=== PATIENT | male | born 1945 | race Caucasian/White ===

== ENCOUNTER → 2018-03-08 17:51 | Outpatient (CLI) | payer MEDICARE, SELFPAY ==
[2018-03-08 17:53] LABS: Red Blood Cells-Urine 0 SEEN /hpf (0-5)
[2018-03-08 18:57] LABS: Color, Urine Yellow (Yellow); Glucose, Dipstick NEGATIVE (Normal); Ketone-Dipstick 5 mg/dl (Negative); Nitrite-Dipstick Negative (Negative); Protein-Dipstick 30 mg/dl (Negative); Urine Bilirubin Dipstick Negative (Negative); Urine Clarity Cloudy (Clear); Urine Urobilinogen 1 mg/dl (Normal)
[2018-03-08 18:58] LABS: Leukocyte Esterase-Dipstick 25 /ul (Negative); Occult Blood-Urine 10 /ul (Negative)
[2018-03-08 19:01] LABS: Bacteria 3+ /hpf (None Seen); Calcium Oxalate Crystals Ur 4+ /hpf (<or=2+); Hyaline Cast 0-5 SEEN /lpf (0-5); Mucous, Urine 3+ /hpf (<or=2+); Squamous Epithelial Cells - UA 0-5 SEEN /hpf (0-5); White Blood Cells 0-5 SEEN /hpf (0-5)
--- OUTSIDE RECORDS SUMMARY | 2018-04-25 02:36 | XMS RPT_ITS ---
:1945 Author Organization OHIP Care Team Providers Name Role Phone NASH ARELLANO (PA) Attending Unavailable JOHN, ELROY D Referring Unavailable CARYL MANPREET Gio Admitting Unavailable CARYL MANPREET T Attending Unavailable NASH ARELLANO (REAL) Referring Unavailable JOHN DO, ELROY D Attending Unavailable JOHN DO, ELROY D Primary Care Unavailable JOHN DO, ELROY D Attending Unavailable JOHN DO, ELROY D Primary Care Unavailable ROSEMARY HARRELL CNP Attending Unavailable JOHN DO, ELROY D Primary Care Unavailable MICAELA MIRANDA MD Attending Unavailable JOHN DO, ELROY D Primary Care Unavailable THOMPSON MARTINEZ MD Attending Unavailable JOHN DO, ELROY D Primary Care Unavailable Rosemray Harrell Attending Unavailable John, Elroy Primary Care Unavailable Rosemary Harrell Referring Unavailable Rosemary Harrell Attending Unavailable Rosemary Harrell Referring Unavailable John, Elroy Primary Care Unavailable Thompson Martinez Attending Unavailable Thompson Martinez Referring Unavailable John, Elroy Primary Care Unavailable PROBLEMS PROBLEMS DATE TYPE CONDITION / CODE ATTENDING STATUS SOURCE 03/19/2018 Unknown R82.998 - Other Rosemary Harrell Active Pam abnormal findings M [facility] Hospital R82.998(ICD-10) Repository 03/09/2018 Unknown R31.1 - Benign Rosemary Harrell Active Pam essential M [facility] hematuria / Repository R31.1(ICD-10) 12/08/2017 Active Family history of CARYL, Active [facility] malignant MANPREET T [facility] neoplasm of Repository digestive organs / Z80.0(ICD-10) PROCEDURES PROCEDURES No Procedure Records FoundRESULTS RESULTS 12 LEAD ELECTROCARDIOGRAM Observed: 04/15/2018 Status: F Source: [place] 4:04 PM [facility] REPOSITORY [facility] Cardiovascular Services [address] [place] [address] EKG - NHC 04/14/18929 MR#: [id number] Acct: [id number] Name: SILAS WOOD Rep #: [id number] : 1945 72 From: Tonny Hidalgo MD Attending Dr: Raymon AUSTIN,Thompson Parks Status: PRE SDC Ordering Dr: Cyrus Davis MD Date: 04/14/18 Location: [facility] Sex: M C Admitted: Test Reason : Blood Pressure : / mmHG Vent. Rate : 048 BPM Atrial Rate : 048 BPM P-R Int : 212 ms QRS Dur : 090 ms QT Int : 412 ms P-R-T Axes : 069 044 068 degrees QTc Int : 368 ms Marked sinus bradycardia with 1st degree A-V block Abnormal ECG Confirmed by ROCKY AUSTIN, TONNY ([id number]), graphics editor ERIC CHAPARRO ([id number]) on 04/15/2018 4:04:30 PM Referred By: Thompson Martinez Confirmed By:TONNY HIDALGO MD 04/15/18 1604 Date Tonny Hidalgo MD CC: Cyrus Davis MD; Elroy Lopez DO; Thompson Martinez MD Date Dictated: 04/14/18929 Date Transcribed: 04/14/18929 Garnett Feeder: Signed KIDNEY AND BLADDER Observed: 03/19/2018 Status: F Source: [place] 7:51 AM [facility] REPOSITORY [facility] Imaging [place] [address] Kidney and Bladder MR#: [id number] Acct: [id number] Name: SILAS WOOD Rep #: [id number] : 1945 M 72 From: Martell Grubbs DO PCP: Elroy Lopez DO Status: REG CLI Study: Kidney and Bladder Date of Exam: 03/19/18 Exam# [id number] Ordering Dr: Rosemary Harrell ORDER DEPARTMENT SUPERVISOR-C STUDY: RENAL ULTRASOUND - COMPLETE REASON FOR EXAM: Male, 72 years old. History of bladder stones. TECHNIQUE: Ultrasound evaluation of the kidneys was performed with real-time and static bunch-scale imaging. COMPARISON: None. FINDINGS: RIGHT KIDNEY: Normal location of the right kidney, which is normal in size. The right kidney measures 10.2 x 5.5 x 4.3 cm. There is a normal cortex of the right kidney. The renal cortex measures 1.3 cm. There is demonstrated hypoechoic cyst of the right kidney measuring 1.3 x 1.3 x 1.6 cm with additional cyst measuring 1.4 x 1.3 x 1.3 cm within the mid portion of the kidney with slight exophytic component. There is a nonobstructive renal hypoechoic 3 mm nephrolith within the renal pelvis. There is no right hydronephrosis. DISTAL RIGHT URETER: There is non-visualization of the distal right ureter. There is no demonstrated right ureterovesical junction calculus. There is a visualized right ureteral jet. LEFT KIDNEY: Normal location of the left kidney, which is normal in size. The left kidney measures 10.8 x 4.7 x 5.9 cm. There is a normal cortex of the left kidney. The renal cortex measures 0.9 cm. There is no left renal mass or cyst. There is a nonobstructive 4 mm cortical renal nephrolith is present. There is no left hydronephrosis. DISTAL LEFT URETER: There is non-visualization of the distal left ureter. There is no demonstrated left ureterovesical junction calculus. There is a visualized left ureteral jet. Right sac I.V.C.: The IVC is patent. BLADDER: The distended urinary bladder has a volume of 40 ml. The empty urinary bladder has a volume of 4 ml. There is a normal wall thickness of the distended urinary bladder. The bladder base demonstrates mass effect by an enlarged prostate measuring 5.1 x 3.5 x 5.0 cm.. There are dependent layering bladder stones measuring 7 and 9 mm respectively. US/Kidney and Bladder IMPRESSION: 1. Simple appearing right renal cysts as above with 3 mm nonobstructing nephrolith. 2. Left renal nonobstructing 4 mm nephrolith. 3. Dependent layering bladder stones measuring 7 and 9 mm. 2. Enlarged prostate abutting the inferior bladder measuring 5.1 x 3.5 x 5.0 cm. Electronically Signed: Martell Grubbs DO at 9:35 EST , Service support , CC: Elroy Lopez DO; Rosemary Harrell NP Garnett Feeder: Signed Observed: 03/15/2018 Status: F Source: [place]AM CULTURE, URINE 8:33 AM [facility] REPOSITORY Urine Culture Below infection level. ORGANISM 1: Streptococcus group B [place] Count 1000-10,000 Performed By: #### M100.0650 #### [facility] [address] [place], [place], [address] URINALYSIS, COMPLETE Collected: 03/08/2018 Status: C Source: [place] 8:30 AM [facility] REPOSITORY Order Comment: How was Urine Obtained? CLEAN CATCH TYPE CODE TESTS RESULT OUT OF RANGE REFERENCE UNITS LAB L400.3000 Yellow COLOR Normal Yellow LAB L400.3050 Clear Normal CLARITY Cloudy LAB L400.3200 Normal mg/dl Normal GLUCOSE, UR NEGATIVE LAB L400.3300 Negative mg/dL Normal BILIRUBIN URINE Negative LAB L400.3400 Negative mg/dl High 5 KETONE UR LAB L400.3465 1.002-1.030 Normal SP.GR. DIPSTX 1.020 LAB L400.3550 5.0 - 8.0 pH UR Normal 6.0 LAB L400.3600 Negative mg/dl High PROT 30 DIPSTX LAB L400.3700 Normal mg/dl High 1 UROBILI LAB L400.3750 Negative Normal NITRITE UR Negative LAB L400.3780 Negative /ul High 10 OCCULT BLOOD-UR LAB L400.3800 Negative /ul High LEUK 25 ESTERASE LAB L400.4050 0-5 /hpf WBC Normal 0-5 SEEN Result Comment: AMENDED REPORT 03/08/181900 WBC previously reported as: 0 SEEN /hpf LAB L400.4100 0-5 /hpf Normal RBC-UA 0 SEEN LAB L400.4150 0-5 /hpf Normal SQUAM EPI 0-5 SEEN Result Comment: AMENDED REPORT 03/08/181900 SQUAM EPI previously reported as: 0 SEEN /hpf LAB L400.4300 None Seen /hpf Normal BACTERIA 3+ Result Comment: AMENDED REPORT 03/08/181900 BACTERIA previously reported as: 0 SEEN /hpf LAB L400.4350 <or=2+ /hpf Normal MUCUS, URINE 3+ Result Comment: AMENDED REPORT 03/08/181900 MUCUS, URINE previously reported as: 0 SEEN /hpf LAB L400.4400 0-5 /lpf Normal HYALINE CAST 0-5 SEEN LAB L400.4700 <or=2+ /hpf Normal CA OX CRYSTAL 4+ Performed By: #### L400.0001 #### [facility] [address] [place] [address], [id number] PSA Collected: 02/26/2018 Status: F Source: [facility] 1:50 PM [facility] REPOSITORY TYPE CODE TESTS RESULT OUT OF REFERENCE UNITS RANGE LAB PSA(LOINC) 0.00-4.00 ng/mL High Prostate 4.47 Specific Antigen Performed By: #### PSA #### [facility] [address] [place] [id number] NURSING PROG Observed: 12/08/2017 Status: COMPLETED Source: [place] 12:15 PM [facility] REPOSITORY HNO ID: [id number] Author: Hillary Danitza Yu RN Service: Nursing Author Type: Registered Nurse Type: Nursing Progress Note Filed: 12/08/2017 12:15 PM Note Text: Discharged home via wheel chair in the care of his friend, no complaints, all safety maintained. PT ED Observed: 12/08/2017 Status: COMPLETED Source: [place] 12:10 PM [facility] REPOSITORY HNO ID: [id number] Author: Hillary Yu RN Service: Nursing Author Type: Registered Nurse Type: Patient Education Filed: 12/08/2017 12:19 PM Note Text: POST OP LEARNING RESPONSE INSTRUCTION PROVIDED TO: Patient and friend/other METHOD OF INSTRUCTION: Individual instruction Written instruction - handouts Verbal instruction PATIENT / FAMILY RESPONSE: Information received as demonstrated by interest and questions FOLLOW-UP PLAN: Patient instructed to call with any further issues SUPPLEMENTAL MATERIAL: None REFERRAL (RECOMMENDATION): None Electronically Signed By: Hillary Yu RN In Department: AMBULATORY SURGERY NURSING PROG Observed: 12/08/2017 Status: COMPLETED Source: [place] 11:59 AM [facility] REPOSITORY HNO ID: [id number] Author: Hillary Yu RN Service: Nursing Author Type: Registered Nurse Type: Nursing Progress Note Filed: 12/08/2017 11:59 AM Note Text: Tolerating snack, no complaints. PT ED Observed: 12/08/2017 Status: COMPLETED Source: [place] 11:51 AM [facility] REPOSITORY HNO ID: [id number] Author: Hillary Yu RN Service: Nursing Author Type: Registered Nurse Type: Patient Education Filed: 12/08/2017 11:54 AM Note Text: Dr Ramos to visit with patient and friend., all questions answered, no complaints, all safety maintained. NURSING PROG Observed: 12/08/2017 Status: COMPLETED Source: [place] 11:49 AM [facility] REPOSITORY HNO ID: [id number] Author: Hillary Yu RN Service: Nursing Author Type: Registered Nurse Type: Nursing Progress Note Filed: 12/08/2017 11:50 AM Note Text: Pt into Endo recovery room in satisfactory condition. Resting on left side. Pt. sleepy but arousable. Abdomen soft, no complaints, all safety maintained. Will continue to monitor. NURSING PROG Observed: 12/08/2017 Status: COMPLETED Source: [place] 11:40 AM [facility] REPOSITORY HNO ID: [id number] Author: Yahaira Zarco RN Service: Nursing Author Type: Registered Nurse Type: Nursing Progress Note Filed: 12/08/2017 11:40 AM Note Text: Patient did not experience a fall within the Intraoperative area. Patient did not experience a burn within the Intraoperative area. Yahaira Zarco RN NURSING PROG Observed: 12/08/2017 Status: COMPLETED Source: [place] 11:20 AM [facility] REPOSITORY HNO ID: [id number] Author: Hillary Yu RN Service: Nursing Author Type: Registered Nurse Type: Nursing Progress Note Filed: 12/08/2017 12:26 PM Note Text: Discharged at 1220 not 1120, mis typed. NURSING PROG Observed: 12/08/2017 Status: COMPLETED Source: [place] 11:20 AM [facility] REPOSITORY HNO ID: [id number] Author: Hillary Yu RN Service: Nursing Author Type: Registered Nurse Type: Nursing Progress Note Filed: 12/08/2017 12:27 PM Note Text: Discharged at 1220 not 1120, mis typed. Patient did not experience a fall prior to discharge. Patient did not experience a burn prior to discharge. Hillary Yu RN NURSING PROG Observed: 12/08/2017 Status: COMPLETED Source: [place] 11:12 AM [facility] REPOSITORY HNO ID: [id number] Author: Dana Gillette RN Service: (none) Author Type: Registered Nurse Type: Nursing Progress Note Filed: 12/08/2017 11:13 AM Note Text: [facility] PRE-OP NURSING HAND OFF NOTE SBAR Hand off given to Yahaira Zarco RN. Hand off was communicated verbally and at the patient's bedside and all questions were answered. FALLS/CHEATHAM Patient did not experience a fall within the Preoperative area. Patient did not experience a burn within the Preoperative area. Dana Gillette RN PT ED Observed: 12/08/2017 Status: COMPLETED Source: [place] 9:34 AM [facility] REPOSITORY HNO ID: [id number] Author: Dana Gillette RN Service: (none) Author Type: Registered Nurse Type: Patient Education Filed: 12/08/2017 9:34 AM Note Text: Discharge Instructions were reviewed pre-operatively with the patient. All questions and concerns were addressed. Dana Gillette RN PRE OP LEARNING ASSESSMENT PROCEDURE/SURGERY: GI PROCEDURES: Colonoscopy READINESS TO LEARN COGNITIVE ABILITY: Alert and oriented MOTIVATION TO LEARN: Interested FAMILY SUPPORT: Unable to assess - Family not present PATIENT LEARNS BEST BY: Multiple Methods FACTORS AFFECTING LEARNING: None PHYSICAL LIMITATIONS AFFECTING LEARNING: None Electronically Signed By: Dana Gillette RN In Department: AMBULATORY SURGERY HISTORY PHYSICAL Observed: 12/08/2017 Status: COMPLETED Source: [place] 9:31 AM [facility] REPOSITORY HNO ID: [id number] Author: Manpreet Ramos Service: General Surgery Author Type: Physician Type: HANDP Filed: 12/08/2017 9:32 AM Note Text: HISTORY AND PHYSICAL ? Silas Wood 1945 ? REFERRING PHYSICIAN: Elroy Lopez, DO ? CHIEF COMPLAINT: colon consult ? HPI: The patient is a 72 year old male referred for endoscopy. Silas notes a family history of colon cancer in his mother, last colonoscopy was in July 2012 with 5-year follow-up recommended. He denies any change in bowel habits, weight changes, blood in stools, black tarry stools or abdominal pain. Denies upper GI complaints. ? Past medical history significant for hypertension and hypercholesterolemia. Patient notes at one point in the last few years he was found to have irregular heartbeats on a routine exam, had echocardiogram and was evaluated by cardiology, states he was told no medication or further workup indicated. He follows with his PCP regularly every 6 months. He notes he enjoys good health and has an active lifestyle, still working and walks every day as well as occasional weight lifting. He notes he eats a very health-conscious diet. He denies any chest pain, shortness of breath or recent hospitalizations. ? ? PAST?MEDICAL?HISTORY PAST MEDICAL HISTORY Diagnosis Date - Elevated PSA ? - Hypercholesteremia ? - Unspecified essential hypertension ? ? ? PAST?SURGICAL?HISTORY PAST SURGICAL HISTORY Procedure Laterality Date - COLONOSCOP W/ OR W/O [facility] SPEC ? 08/24/12 ? Colonoscopy-return scope 2017 - PAST SURGICAL HISTORY OF ? 1979 ? lower wisdom teeth ? ? ? CURRENT?MEDICATIONS ? Current Outpatient Prescriptions: doxycycline 20 mg tablet TAKE 1 TABLET TWICE A DAY UNTIL FINISHED dutasteride (AVODART) 0.5 mg capsule Take 0.5 mg by mouth once daily. peg 3350-Electrolytes (GOLYTELY) 236-22.74-6.74 -5.86 gram suspension Take 4,000 mL by mouth one time only for 1 dose. NIFEdipine SR (NIFEDICAL XL) 60 mg 24 hr tablet Take 60 mg by mouth once daily. atenolol 50 mg tablet Take 50 mg by mouth once daily. Lovastatin 40 mg tablet Take 60 mg by mouth daily at bedtime. DOXYCYCLINE HYCLATE ORAL Take 20 mg by mouth twice daily. CALCIUM CARBONATE/VITAMIN D3 (CALCIUM + D ORAL) Take 1,200 mg by mouth twice daily. cholecalciferol, vitamin D3, 4,000 unit cap Take 4,000 mg by mouth three times daily. Evagxgltnkaeu-Dqukohve-Sxnrpc (CENTRUM SILVER) Tab Take 1 tablet by mouth once daily. ? No current facility-administered medications for this visit. ? ALLERGIES: Patient has no known allergies. ? PERSONAL HISTORY: SOCIAL?HISTORY Social History Marital status: Single Spouse name: Years of education: Number of children: 0 ? Occupational History Occupation Employer Comment DELIVERY [employer] ? Social History Main Topics Smoking status: Never Smoker ? Smokeless tobacco: Never Used Alcohol use: No ? FAMILY HISTORY: FAMILY?HISTORY FAMILY HISTORY Problem Relation Age of Onset - Colon Cancer Mother ? ? with mets to liver - Heart Father ? - Colon Cancer Maternal Grandmother ? ? ? REVIEW OF SYMPTOMS: The review of systems data was entered by the nurse and reviewed by me ? Nursing Notes: Xin Hernadez LPN 11/25/2017 9:04 AM Signed REVIEW OF SYSTEMS: General: The patient denies fatigue, denies weight loss, denies weight gain, denies feeling hot, and denies feelings of cold. Eyes: The patient denies glaucoma, denies eye injury/surgery, does not wear glasses or contacts. Ear/Nose/Throat: The patient denies allergies, denies hayfever, denies ear infections, and denies bloody noses. Cardiovascular: The patient denies chest pain, denies heart disease, denies high blood pressure,denies cardiac stent, denies prior heart attack, NOTES irregular heart beat, denies high cholesterol, denies poor circulation, denies heart failure, other cardiac issues, denies claudication, denies cold feet, denies peripheral arterial stent. Respiratory: The patient denies tuberculosis, denies pneumonia, denies frequent cough, denies pulmonary embolism, denies shortness of breath, and denies coughing up blood. Gastrointestinal: The patient denies difficulty swallowing, denies acid reflux, denies ulcers, denies vomiting, denies jaundice/hepatitis, denies gallbladder problems, denies black or tarry stools, denies hemorrhoids, denies bleeding from rectum, denies diverticulitis, denies constipation, denies diarrhea, denies loss of stool control, and denies hernias. Kidney/Bladder: The patient denies kidney stones, denies urine infections, and NOTES bloody urine. Skin: The patient denies a history of skin cancer, denies bleeding/changing moles, and denies a history of skin rash. Neurologic: The patient denies a history of epilepsy/convulsions, denies headaches, denies head/spinal injuries, and denies stroke/TIA. Psychiatric: The patient denies psychiatric medications, denies depression, and denies voices, denies substance abuse. Endocrine: The patient denies thyroid disorders, denies diabetes, and denies hormonal problems. Hematologic: The patient denies a history of bruising, denies bleeding, and denies anemia, denies blood clots. Infections: The patient denies a history of measles and mumps, denies rheumatic fever, and denies sexually transmitted diseases. Musculoskeletal: The patient denies back pain/injury, denies back problems, denies sciatica, denies knee/foot trouble, denies arthritis, or denies gout. ? ? When was patient's last Mammogram screening? N/A ? Last Colonoscopy: 2012 ? Xin Hernadez LPN I have confirmed and edited as necessary, the PFSH and ROS obtained by others. ? PHYSICAL EXAMINATION: ? General: The patient is a very pleasant 72 year old male, appears younger than stated age, well nourished, well hydrated in no acute distress. The patient is oriented to time, place, and person. ? VITALS: Blood pressure 178/90, pulse 60, weight 81.6 kg (180 lb). There is no height or weight on file to calculate BMI. ? HEENT: Normal cephalic, ataumatic, pupils are equally round, sclera are anicteric, mucous membranes are moist, oropharynx is clear. Neck has no masses, asymmetry or lymphadenopathy. ? Respiratory: Clear to auscultation and percussion. Normal respiratory excursion and pattern. ? Cardiac: Examination is regular rate and rhythm. ? Abdominal exam: Soft, nontender, with no palpable masses. No hepatosplenomegaly. No palpable hernias. ? Rectal exam: exam deferred ? Extremities: no clubbing, cyanosis or edema. No adenopathy. ? Other: ? LABORATORY VALUES: As Noted ? RADIOLOGIC STUDIES: As Noted ? Assessment IMPRESSION: encounter for screening colonoscopy ? PLAN: We will plan for screening colonoscopy. We discussed the risks and benefits of the planned endoscopy. I have informed the patient that complications can occur including failure to complete the endoscopy and perforation. The patient had the opportunity to ask questions concerning the planned endoscopy. My staff has also explained the procedure to the patient in understandable terms and has given the patient printed material concerning the procedure. The patient freely consents to surgery. ? I plan to use golytely bowel preparation for endoscopy ? ? Diagnoses: (Z12.11) Encounter for screening for malignant neoplasm of colon (primary encounter diagnosis) ? My findings have been communicated to Dr. Lopez via shared medical record. This note will be forwarded to Dr. Elroy Lopez DO. Return to Clinic: The patient is instructed to follow-up with me 1 week post operatively. ? I spent 30 minutes in the visit, with more than 50% of the total xkwk-io-jwdg time of the visit in counseling / coordination of care. ? ? Nash Arellano PA-C PROGRESS Observed: 11/25/2017 Status: COMPLETED Source: [place] 11:08 AM [facility] REPOSITORY HNO ID: [id number] Author: Nash Arellano (Pa) Service: (none) Author Type: Physician Oil Deliverer Type: Progress Notes Filed: 11/25/2017 5:49 PM Note Text: HISTORY AND PHYSICAL Silas Wood 1945 REFERRING PHYSICIAN: Elroy Lopez DO CHIEF COMPLAINT: colon consult HPI: The patient is a 72 year old male referred for endoscopy. Silas notes a family history of colon cancer in his mother, last colonoscopy was in July 2012 with 5-year follow-up recommended. He denies any change in bowel habits, weight changes, blood in stools, black tarry stools or abdominal pain. Denies upper GI complaints. Past medical history significant for hypertension and hypercholesterolemia. Patient notes at one point in the last few years he was found to have irregular heartbeats on a routine exam, had echocardiogram and was evaluated by cardiology, states he was told no medication or further workup indicated. He follows with his PCP regularly every 6 months. He notes he enjoys good health and has an active lifestyle, still working and walks every day as well as occasional weight lifting. He notes he eats a very health-conscious diet. He denies any chest pain, shortness of breath or recent hospitalizations. PAST MEDICAL HISTORY Diagnosis Date - Elevated PSA - Hypercholesteremia - Unspecified essential hypertension PAST SURGICAL HISTORY Procedure Laterality Date - COLONOSCOP W/ OR W/O [facility] SPEC 08/24/12 Colonoscopy-return scope 2017 - PAST SURGICAL HISTORY OF 1980 lower wisdom teeth Current Outpatient Prescriptions: doxycycline 20 mg tablet TAKE 1 TABLET TWICE A DAY UNTIL FINISHED dutasteride (AVODART) 0.5 mg capsule Take 0.5 mg by mouth once daily. peg 3350-Electrolytes (GOLYTELY) 236-22.74-6.74 -5.86 gram suspension Take 4,000 mL by mouth one time only for 1 dose. NIFEdipine SR (NIFEDICAL XL) 60 mg 24 hr tablet Take 60 mg by mouth once daily. atenolol 50 mg tablet Take 50 mg by mouth once daily. Lovastatin 40 mg tablet Take 60 mg by mouth daily at bedtime. DOXYCYCLINE HYCLATE ORAL Take 20 mg by mouth twice daily. CALCIUM CARBONATE/VITAMIN D3 (CALCIUM + D ORAL) Take 1,200 mg by mouth twice daily. cholecalciferol, vitamin D3, 4,000 unit cap Take 4,000 mg by mouth three times daily. Wonariuxzdqyh-Lidqontn-Uthrvq (CENTRUM SILVER) Tab Take 1 tablet by mouth once daily. No current facility-administered medications for this visit. ALLERGIES: Patient has no known allergies. 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 Eyes: The patient denies glaucoma, denies eye injury/surgery, does not wear glasses or contacts. Ear/Nose/Throat: The patient denies allergies, denies hayfever, denies ear infections, and denies bloody noses. Cardiovascular: The patient denies chest pain, denies heart disease, denies high blood pressure,denies cardiac stent, denies prior heart attack, NOTES irregular heart beat, denies high cholesterol, denies poor circulation, denies heart failure, other cardiac issues, denies claudication, denies cold feet, denies peripheral arterial stent. Respiratory: The patient denies tuberculosis, denies pneumonia, denies frequent cough, denies pulmonary embolism, denies shortness of breath, and denies coughing up blood. Gastrointestinal: The patient denies difficulty swallowing, denies acid reflux, denies ulcers, denies vomiting, denies jaundice/hepatitis, denies gallbladder problems, denies black or tarry stools, denies hemorrhoids, denies bleeding from rectum, denies diverticulitis, denies constipation, denies diarrhea, denies loss of stool control, and denies hernias. Kidney/Bladder: The patient denies kidney stones, denies urine infections, and NOTES bloody urine. Skin: The patient denies a history of skin cancer, denies bleeding/changing moles, and denies a history of skin rash. Neurologic: The patient denies a history of epilepsy/convulsions, denies headaches, denies head/spinal injuries, and denies stroke/TIA. Psychiatric: The patient denies psychiatric medications, denies depression, and denies voices, denies substance abuse. Endocrine: The patient denies thyroid disorders, denies diabetes, and denies hormonal problems. Hematologic: The patient denies a history of bruising, denies bleeding, and denies anemia, denies blood clots. Infections: The patient denies a history of measles and mumps, denies rheumatic fever, and denies sexually transmitted diseases. Musculoskeletal: The patient denies back pain/injury, denies back problems, denies sciatica, denies knee/foot trouble, denies arthritis, or denies gout. When was patient's last Mammogram screening? N/A Last Colonoscopy: 2012 Xin Hernadez LPN I have confirmed and edited as necessary, the PFSH and ROS obtained by others. PHYSICAL EXAMINATION: General: The patient is a very pleasant 72 year old male, appears younger than stated age, well nourished, well hydrated in no acute distress. The patient is oriented to time, place, and person. VITALS: Blood pressure 178/90, pulse 60, weight 81.6 kg (180 lb). There is no height or weight on file to calculate BMI. HEENT: Normal cephalic, ataumatic, pupils are equally round, sclera are anicteric, mucous membranes are moist, oropharynx is clear. Neck has no masses, asymmetry or lymphadenopathy. Respiratory: Clear to auscultation and percussion. Normal respiratory excursion and pattern. Cardiac: Examination is regular rate and rhythm. Abdominal exam: Soft, nontender, with no palpable masses. No hepatosplenomegaly. No palpable hernias. Rectal exam: exam deferred Extremities: no clubbing, cyanosis or edema. No adenopathy. Other: LABORATORY VALUES: As Noted RADIOLOGIC STUDIES: As Noted Assessment IMPRESSION: encounter for screening colonoscopy PLAN: We will plan for screening colonoscopy. We discussed the risks and benefits of the planned endoscopy. I have informed the patient that complications can occur including failure to complete the endoscopy and perforation. The patient had the opportunity to ask questions concerning the planned endoscopy. My staff has also explained the procedure to the patient in understandable terms and has given the patient printed material concerning the procedure. The patient freely consents to surgery. I plan to use golytely bowel preparation for endoscopy Diagnoses: (Z12.11) Encounter for screening for malignant neoplasm of colon (primary encounter diagnosis) My findings have been communicated to Dr. Lopez via shared medical record. This note will be forwarded to Dr. Elroy Lopez DO. Return to Clinic: The patient is instructed to follow-up with me 1 week post operatively. I spent 30 minutes in the visit, with more than 50% of the total tnob-ap-yhgi time of the visit in counseling / coordination of care. ADAL Tejeda Observed: 11/25/2017 Status: COMPLETED Source: [place] 9:00 AM [facility] REPOSITORY Office Visit (GENSWS) LEESASILAS Dejah ([id number]) 1945 M Date Time Provider Department 11/25/17 9:00 AM NASH ARELLANO) MICHAELLES During your visit today, we recorded the following information about you: Pulse Blood pressure Weight 60/minute 178/90 81.6 kg Xin Hernadez DARIO 11/25/2017 9:04 AM Signed REVIEW OF SYSTEMS: General: The patient denies fatigue, denies weight loss, denies weight gain, denies feeling hot, and denies feelings of cold. Eyes: The patient denies glaucoma, denies eye injury/surgery, does not wear glasses or contacts. Ear/Nose/Throat: The patient denies allergies, denies hayfever, denies ear infections, and denies bloody noses. Cardiovascular: The patient denies chest pain, denies heart disease, denies high blood pressure,denies cardiac stent, denies prior heart attack, NOTES irregular heart beat, denies high cholesterol, denies poor circulation, denies heart failure, other cardiac issues, denies claudication, denies cold feet, denies peripheral arterial stent. Respiratory: The patient denies tuberculosis, denies pneumonia, denies frequent cough, denies pulmonary embolism, denies shortness of breath, and denies coughing up blood. Gastrointestinal: The patient denies difficulty swallowing, denies acid reflux, denies ulcers, denies vomiting, denies jaundice/hepatitis, denies gallbladder problems, denies black or tarry stools, denies hemorrhoids, denies bleeding from rectum, denies diverticulitis, denies constipation, denies diarrhea, denies loss of stool control, and denies hernias. Kidney/Bladder: The patient denies kidney stones, denies urine infections, and NOTES bloody urine. Skin: The patient denies a history of skin cancer, denies bleeding/changing moles, and denies a history of skin rash. Neurologic: The patient denies a history of epilepsy/convulsions, denies headaches, denies head/spinal injuries, and denies stroke/TIA. Psychiatric: The patient denies psychiatric medications, denies depression, and denies voices, denies substance abuse. Endocrine: The patient denies thyroid disorders, denies diabetes, and denies hormonal problems. Hematologic: The patient denies a history of bruising, denies bleeding, and denies anemia, denies blood clots. Infections: The patient denies a history of measles and mumps, denies rheumatic fever, and denies sexually transmitted diseases. Musculoskeletal: The patient denies back pain/injury, denies back problems, denies sciatica, denies knee/foot trouble, denies arthritis, or denies gout. When was patient's last Mammogram screening? N/A Last Colonoscopy: 2012 Xin Arellano PA-C 11/25/2017 5:49 PM Signed HISTORY AND PHYSICAL Silas Wood 1945 REFERRING PHYSICIAN: Elroy Lopez DO CHIEF COMPLAINT: colon consult HPI: The patient is a 72 year old male referred for endoscopy. Silas notes a family history of colon cancer in his mother, last colonoscopy was in July 2012 with 5-year follow-up recommended. He denies any change in bowel habits, weight changes, blood in stools, black tarry stools or abdominal pain. Denies upper GI complaints. Past medical history significant for hypertension and hypercholesterolemia. Patient notes at one point in the last few years he was found to have irregular heartbeats on a routine exam, had echocardiogram and was evaluated by cardiology, states he was told no medication or further workup indicated. He follows with his PCP regularly every 6 months. He notes he enjoys good health and has an active lifestyle, still working and walks every day as well as occasional weight lifting. He notes he eats a very health- conscious diet. He denies any chest pain, shortness of breath or recent hospitalizations. PAST MEDICAL HISTORY Diagnosis Date - Elevated PSA - Hypercholesteremia - Unspecified essential hypertension PAST SURGICAL HISTORY Procedure Laterality Date - COLONOSCOP W/ OR W/O [facility] SPEC 08/24/12 Colonoscopy-return scope 2018 - PAST SURGICAL HISTORY OF 1980 lower wisdom teeth Current Outpatient Prescriptions: doxycycline 20 mg tablet TAKE 1 TABLET TWICE A DAY UNTIL FINISHED dutasteride (AVODART) 0.5 mg capsule Take 0.5 mg by mouth once daily. peg 3350-Electrolytes (GOLYTELY) 236-22.74-6.74 -5.86 gram suspension Take 4,000 mL by mouth one time only for 1 dose. NIFEdipine SR (NIFEDICAL XL) 60 mg 24 hr tablet Take 60 mg by mouth once daily. atenolol 50 mg tablet Take 50 mg by mouth once daily. Lovastatin 40 mg tablet Take 60 mg by mouth daily at bedtime. DOXYCYCLINE HYCLATE ORAL Take 20 mg by mouth twice daily. CALCIUM CARBONATE/VITAMIN D3 (CALCIUM + D ORAL) Take 1,200 mg by mouth twice daily. cholecalciferol, vitamin D3, 4,000 unit cap Take 4,000 mg by mouth three times daily. Apmgeroeazrff-Ybhikvoq-Oemxgf (CENTRUM SILVER) Tab Take 1 tablet by mouth once daily. No current facility-administered medications for this visit. ALLERGIES: Patient has no known allergies. 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 Eyes: The patient denies glaucoma, denies eye injury/surgery, does not wear glasses or contacts. Ear/Nose/Throat: The patient denies allergies, denies hayfever, denies ear infections, and denies bloody noses. Cardiovascular: The patient denies chest pain, denies heart disease, denies high blood pressure,denies cardiac stent, denies prior heart attack, NOTES irregular heart beat, denies high cholesterol, denies poor circulation, denies heart failure, other cardiac issues, denies claudication, denies cold feet, denies peripheral arterial stent. Respiratory: The patient denies tuberculosis, denies pneumonia, denies frequent cough, denies pulmonary embolism, denies shortness of breath, and denies coughing up blood. Gastrointestinal: The patient denies difficulty swallowing, denies acid reflux, denies ulcers, denies vomiting, denies jaundice/hepatitis, denies gallbladder problems, denies black or tarry stools, denies hemorrhoids, denies bleeding from rectum, denies diverticulitis, denies constipation, denies diarrhea, denies loss of stool control, and denies hernias. Kidney/Bladder: The patient denies kidney stones, denies urine infections, and NOTES bloody urine. Skin: The patient denies a history of skin cancer, denies bleeding/changing moles, and denies a history of skin rash. Neurologic: The patient denies a history of epilepsy/convulsions, denies headaches, denies head/spinal injuries, and denies stroke/TIA. Psychiatric: The patient denies psychiatric medications, denies depression, and denies voices, denies substance abuse. Endocrine: The patient denies thyroid disorders, denies diabetes, and denies hormonal problems. Hematologic: The patient denies a history of bruising, denies bleeding, and denies anemia, denies blood clots. Infections: The patient denies a history of measles and mumps, denies rheumatic fever, and denies sexually transmitted diseases. Musculoskeletal: The patient denies back pain/injury, denies back problems, denies sciatica, denies knee/foot trouble, denies arthritis, or denies gout. When was patient's last Mammogram screening? N/A Last Colonoscopy: 2012 Xin Hernadez LPN I have confirmed and edited as necessary, the PFSH and ROS obtained by others. PHYSICAL EXAMINATION: General: The patient is a very pleasant 72 year old male, appears younger than stated age, well nourished, well hydrated in no acute distress. The patient is oriented to time, place, and person. VITALS: Blood pressure 178/90, pulse 60, weight 81.6 kg (180 lb). There is no height or weight on file to calculate BMI. HEENT: Normal cephalic, ataumatic, pupils are equally round, sclera are anicteric, mucous membranes are moist, oropharynx is clear. Neck has no masses, asymmetry or lymphadenopathy. Respiratory: Clear to auscultation and percussion. Normal respiratory excursion and pattern. Cardiac: Examination is regular rate and rhythm. Abdominal exam: Soft, nontender, with no palpable masses. No hepatosplenomegaly. No palpable hernias. Rectal exam: exam deferred Extremities: no clubbing, cyanosis or edema. No adenopathy. Other: LABORATORY VALUES: As Noted RADIOLOGIC STUDIES: As Noted Assessment IMPRESSION: encounter for screening colonoscopy PLAN: We will plan for screening colonoscopy. We discussed the risks and benefits of the planned endoscopy. I have informed the patient that complications can occur including failure to complete the endoscopy and perforation. The patient had the opportunity to ask questions concerning the planned endoscopy. My staff has also explained the procedure to the patient in understandable terms and has given the patient printed material concerning the procedure. The patient freely consents to surgery. I plan to use golytely bowel preparation for endoscopy Diagnoses: (Z12.11) Encounter for screening for malignant neoplasm of colon (primary encounter diagnosis) My findings have been communicated to Dr. Lopez via shared medical record. This note will be forwarded to Dr. Elroy Lopez DO. Return to Clinic: The patient is instructed to follow-up with me 1 week post operatively. I spent 30 minutes in the visit, with more than 50% of the total jwhm-uf-mxin time of the visit in counseling / coordination of care. Nash Arellano PA-C Referring Provider: ELROY LOPEZ [[id number]] Allergies As of Date: 11/25/2017 (No Known Allergies) Date Reviewed: 11/25/2017 Reviewed by: Nash Arellano (Pa) - Fully Assessed Reason for Visit: colon consult [Other] Primary Visit Diagnosis:Encounter for screening for malignant neoplasm of colon [Z12.11] Other Visit Diagnosis:Family history of colon cancer [Z80.0] Order(s):peg 3350-Electrolytes (GOLYTELY) 236-22.74-6.74 - 5.86 gram suspensionTake 4,000 mL by mouth one time only for 1 dose.Disp: 1 BottleRfl: 0 COLONOSCOPY, SCREENING, HIGH RISK [[id number]] Order #: [id number] FUTURE Prescriptions as of 11/25/2017 Sig: DOXYCYCLINE HYCLATE 20 MG TAB* TAKE 1 TABLET TWICE A DAY UNT* DUTASTERIDE 0.5 MG CAPSULE Take 0.5 mg by mouth once kayleigh* PEG 3350-ELECTROLYTES 236 GRA* Take 4,000 mL by mouth one ti* NIFEDIPINE ER 60 MG TABLET,EX* Take 60 mg by mouth once kathia* ATENOLOL 50 MG TABLET Take 50 mg by mouth once kathia* LOVASTATIN 40 MG TABLET Take 60 mg by mouth daily at * DOXYCYCLINE HYCLATE ORAL Take 20 mg by mouth twice kayleigh* CALCIUM + D ORAL Take 1,200 mg by mouth twice * CHOLECALCIFEROL (VITAMIN D3) * Take 4,000 mg by mouth three * XDLGFXSCOJAB-ITABQFMG-MFCELG * Take 1 tablet by mouth once d* Problem List As Of Date 11/25/2017 Noted Resolved Unspecified essential hypertension [I10] Hypercholesteremia [E78.00] Elevated PSA [R97.20] Visit Notes: >> Xin Hernadez LPN ThuNov 25, 2017 9:03 AM Status: Signed REVIEW OF SYSTEMS: General: The patient denies fatigue, denies weight loss, denies weight gain, denies feeling hot, and denies feelings of cold. Eyes: The patient denies glaucoma, denies eye injury/surgery, does not wear glasses or contacts. Ear/Nose/Throat: The patient denies allergies, denies hayfever, denies ear infections, and denies bloody noses. Cardiovascular: The patient denies chest pain, denies heart disease, denies high blood pressure,denies cardiac stent, denies prior heart attack, NOTES irregular heart beat, denies high cholesterol, denies poor circulation, denies heart failure, other cardiac issues, denies claudication, denies cold feet, denies peripheral arterial stent. Respiratory: The patient denies tuberculosis, denies pneumonia, denies frequent cough, denies pulmonary embolism, denies shortness of breath, and denies coughing up blood. Gastrointestinal: The patient denies difficulty swallowing, denies acid reflux, denies ulcers, denies vomiting, denies jaundice/hepatitis, denies gallbladder problems, denies black or tarry stools, denies hemorrhoids, denies bleeding from rectum, denies diverticulitis, denies constipation, denies diarrhea, denies loss of stool control, and denies hernias. Kidney/Bladder: The patient denies kidney stones, denies urine infections, and NOTES bloody urine. Skin: The patient denies a history of skin cancer, denies bleeding/changing moles, and denies a history of skin rash. Neurologic: The patient denies a history of epilepsy/convulsions, denies headaches, denies head/spinal injuries, and denies stroke/TIA. Psychiatric: The patient denies psychiatric medications, denies depression, and denies voices, denies substance abuse. Endocrine: The patient denies thyroid disorders, denies diabetes, and denies hormonal problems. Hematologic: The patient denies a history of bruising, denies bleeding, and denies anemia, denies blood clots. Infections: The patient denies a history of measles and mumps, denies rheumatic fever, and denies sexually transmitted diseases. Musculoskeletal: The patient denies back pain/injury, denies back problems, denies sciatica, denies knee/foot trouble, denies arthritis, or denies gout. When was patient's last Mammogram screening? N/A Last Colonoscopy: 2012 Xin Hernadez [facility] Prescriptions ordered this encounter Disp Refills Start End PEG 3350-ELECTROLYTES 236 GRAM-22.74* 1 Zachary* 0 11/25/2017 11/25/2017 Route: ORAL Sig: Take 4,000 mL by mouth one time only for 1 dose. Follow-up and Disposition History Recorded Encounter Status:Closed by NASH ARELLANO PA-C on 11/25/17 HOSP Observed: 11/25/2017 Status: COMPLETED Source: [place] 12:00 AM [facility] [place] REPOSITORY Patient:Silas Wood MRN: <[id number]> Height:No patient height recorded for this patient. Weight:179 lb 14.3 oz (81.6 kg) Outpatient Medications as of 12/08/17: doxycycline 20 mg tablet dutasteride (AVODART) 0.5 mg capsule NIFEdipine SR (NIFEDICAL XL) 60 mg 24 hr tablet atenolol 50 mg tablet Lovastatin 40 mg tablet DOXYCYCLINE HYCLATE ORAL CALCIUM CARBONATE/VITAMIN D3 (CALCIUM + D ORAL) cholecalciferol, vitamin D3, 4,000 unit cap Ttnpluiooxauz-Ohnruxml-Qlmqju (CENTRUM SILVER) Tab Admission/Clinic Administered Medications as of 12/08/17: lactated ringers infusion Problem List: Unspecified essential hypertension [I10] Hypercholesteremia [E78.00] Elevated PSA [R97.20] Allergies: No Known Allergies Date Verified:12/08/17 Lab Values No results within the last 30 days for the following basenames: K,HCT Progress Notes ([facility]): Olivier Chaparro 11/25/2017 9:47 AM Signed 12-08-[address] Caryl Chaparro Progress Notes ([facility]): Xin Hernadez LPN 11/25/2017 9:04 AM Signed REVIEW OF SYSTEMS: General: The patient denies fatigue, denies weight loss, denies weight gain, denies feeling hot, and denies feelings of cold. Eyes: The patient denies glaucoma, denies eye injury/surgery, does not wear glasses or contacts. Ear/Nose/Throat: The patient denies allergies, denies hayfever, denies ear infections, and denies bloody noses. Cardiovascular: The patient denies chest pain, denies heart disease, denies high blood pressure,denies cardiac stent, denies prior heart attack, NOTES irregular heart beat, denies high cholesterol, denies poor circulation, denies heart failure, other cardiac issues, denies claudication, denies cold feet, denies peripheral arterial stent. Respiratory: The patient denies tuberculosis, denies pneumonia, denies frequent cough, denies pulmonary embolism, denies shortness of breath, and denies coughing up blood. Gastrointestinal: The patient denies difficulty swallowing, denies acid reflux, denies ulcers, denies vomiting, denies jaundice/hepatitis, denies gallbladder problems, denies black or tarry stools, denies hemorrhoids, denies bleeding from rectum, denies diverticulitis, denies constipation, denies diarrhea, denies loss of stool control, and denies hernias. Kidney/Bladder: The patient denies kidney stones, denies urine infections, and NOTES bloody urine. Skin: The patient denies a history of skin cancer, denies bleeding/changing moles, and denies a history of skin rash. Neurologic: The patient denies a history of epilepsy/convulsions, denies headaches, denies head/spinal injuries, and denies stroke/TIA. Psychiatric: The patient denies psychiatric medications, denies depression, and denies voices, denies substance abuse. Endocrine: The patient denies thyroid disorders, denies diabetes, and denies hormonal problems. Hematologic: The patient denies a history of bruising, denies bleeding, and denies anemia, denies blood clots. Infections: The patient denies a history of measles and mumps, denies rheumatic fever, and denies sexually transmitted diseases. Musculoskeletal: The patient denies back pain/injury, denies back problems, denies sciatica, denies knee/foot trouble, denies arthritis, or denies gout. When was patient's last Mammogram screening? N/A Last Colonoscopy: 2012 Xin Arellano PA-C 11/25/2017 5:49 PM Signed HISTORY AND PHYSICAL Silas Wood 1945 REFERRING PHYSICIAN: Elroy Lopez DO CHIEF COMPLAINT: colon consult HPI: The patient is a 72 year old male referred for endoscopy. Silas notes a family history of colon cancer in his mother, last colonoscopy was in July 2012 with 5-year follow-up recommended. He denies any change in bowel habits, weight changes, blood in stools, black tarry stools or abdominal pain. Denies upper GI complaints. Past medical history significant for hypertension and hypercholesterolemia. Patient notes at one point in the last few years he was found to have irregular heartbeats on a routine exam, had echocardiogram and was evaluated by cardiology, states he was told no medication or further workup indicated. He follows with his PCP regularly every 6 months. He notes he enjoys good health and has an active lifestyle, still working and walks every day as well as occasional weight lifting. He notes he eats a very health- conscious diet. He denies any chest pain, shortness of breath or recent hospitalizations. PAST MEDICAL HISTORY Diagnosis Date - Elevated PSA - Hypercholesteremia - Unspecified essential hypertension PAST SURGICAL HISTORY Procedure Laterality Date - COLONOSCOP W/ OR W/O [facility] SPEC 08/24/12 Colonoscopy-return scope 2017 - PAST SURGICAL HISTORY OF 1980 lower wisdom teeth Current Outpatient Prescriptions: doxycycline 20 mg tablet TAKE 1 TABLET TWICE A DAY UNTIL FINISHED dutasteride (AVODART) 0.5 mg capsule Take 0.5 mg by mouth once daily. peg 3350-Electrolytes (GOLYTELY) 236-22.74-6.74 -5.86 gram suspension Take 4,000 mL by mouth one time only for 1 dose. NIFEdipine SR (NIFEDICAL XL) 60 mg 24 hr tablet Take 60 mg by mouth once daily. atenolol 50 mg tablet Take 50 mg by mouth once daily. Lovastatin 40 mg tablet Take 60 mg by mouth daily at bedtime. DOXYCYCLINE HYCLATE ORAL Take 20 mg by mouth twice daily. CALCIUM CARBONATE/VITAMIN D3 (CALCIUM + D ORAL) Take 1,200 mg by mouth twice daily. cholecalciferol, vitamin D3, 4,000 unit cap Take 4,000 mg by mouth three times daily. Zuwvvvwgsiqkt-Abfqtoqh-Zxlyab (CENTRUM SILVER) Tab Take 1 tablet by mouth once daily. No current facility-administered medications for this visit. ALLERGIES: Patient has no known allergies. 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 Eyes: The patient denies glaucoma, denies eye injury/surgery, does not wear glasses or contacts. Ear/Nose/Throat: The patient denies allergies, denies hayfever, denies ear infections, and denies bloody noses. Cardiovascular: The patient denies chest pain, denies heart disease, denies high blood pressure,denies cardiac stent, denies prior heart attack, NOTES irregular heart beat, denies high cholesterol, denies poor circulation, denies heart failure, other cardiac issues, denies claudication, denies cold feet, denies peripheral arterial stent. Respiratory: The patient denies tuberculosis, denies pneumonia, denies frequent cough, denies pulmonary embolism, denies shortness of breath, and denies coughing up blood. Gastrointestinal: The patient denies difficulty swallowing, denies acid reflux, denies ulcers, denies vomiting, denies jaundice/hepatitis, denies gallbladder problems, denies black or tarry stools, denies hemorrhoids, denies bleeding from rectum, denies diverticulitis, denies constipation, denies diarrhea, denies loss of stool control, and denies hernias. Kidney/Bladder: The patient denies kidney stones, denies urine infections, and NOTES bloody urine. Skin: The patient denies a history of skin cancer, denies bleeding/changing moles, and denies a history of skin rash. Neurologic: The patient denies a history of epilepsy/convulsions, denies headaches, denies head/spinal injuries, and denies stroke/TIA. Psychiatric: The patient denies psychiatric medications, denies depression, and denies voices, denies substance abuse. Endocrine: The patient denies thyroid disorders, denies diabetes, and denies hormonal problems. Hematologic: The patient denies a history of bruising, denies bleeding, and denies anemia, denies blood clots. Infections: The patient denies a history of measles and mumps, denies rheumatic fever, and denies sexually transmitted diseases. Musculoskeletal: The patient denies back pain/injury, denies back problems, denies sciatica, denies knee/foot trouble, denies arthritis, or denies gout. When was patient's last Mammogram screening? N/A Last Colonoscopy: 2012 Xin Hernadez LPN I have confirmed and edited as necessary, the PFSH and ROS obtained by others. PHYSICAL EXAMINATION: General: The patient is a very pleasant 72 year old male, appears younger than stated age, well nourished, well hydrated in no acute distress. The patient is oriented to time, place, and person. VITALS: Blood pressure 178/90, pulse 60, weight 81.6 kg (180 lb). There is no height or weight on file to calculate BMI. HEENT: Normal cephalic, ataumatic, pupils are equally round, sclera are anicteric, mucous membranes are moist, oropharynx is clear. Neck has no masses, asymmetry or lymphadenopathy. Respiratory: Clear to auscultation and percussion. Normal respiratory excursion and pattern. Cardiac: Examination is regular rate and rhythm. Abdominal exam: Soft, nontender, with no palpable masses. No hepatosplenomegaly. No palpable hernias. Rectal exam: exam deferred Extremities: no clubbing, cyanosis or edema. No adenopathy. Other: LABORATORY VALUES: As Noted RADIOLOGIC STUDIES: As Noted Assessment IMPRESSION: encounter for screening colonoscopy PLAN: We will plan for screening colonoscopy. We discussed the risks and benefits of the planned endoscopy. I have informed the patient that complications can occur including failure to complete the endoscopy and perforation. The patient had the opportunity to ask questions concerning the planned endoscopy. My staff has also explained the procedure to the patient in understandable terms and has given the patient printed material concerning the procedure. The patient freely consents to surgery. I plan to use golytely bowel preparation for endoscopy Diagnoses: (Z12.11) Encounter for screening for malignant neoplasm of colon (primary encounter diagnosis) My findings have been communicated to Dr. Lopez via shared medical record. This note will be forwarded to Dr. Elryo Lopez DO. Return to Clinic: The patient is instructed to follow-up with me 1 week post operatively. I spent 30 minutes in the visit, with more than 50% of the total [id number] time of the visit in counseling / coordination of care. Nash Arellano PA-C PSA Collected: 06/02/2017 Status: F Source: [employer] [place] 1:59 PM [facility] REPOSITORY TYPE CODE TESTS RESULT OUT OF REFERENCE UNITS RANGE LAB PSA(LOINC) 0.00-4.00 ng/mL High Prostate 5.56 Specific Antigen Result Comment: Above normal(expected)range Performed By: #### PSA #### [facility] [address] [place], [place] [address] BMP Collected: 05/07/2017 Status: F Source: [employer] [place] 9:55 AM [facility] REPOSITORY TYPE CODE TESTS RESULT OUT OF REFERENCE UNITS RANGE LAB 1547-9 83-110 mg/dL GLUCOSE 108 LAB NA(LOINC) 136-146 mEq/L Sodium Level 140 LAB K(LOINC) 3.5-5.1 mEq/L Potassium Level 4.4 LAB CL(LOINC) 98-107 mEq/L Chloride 103 LAB CO2(LOINC) 23-31 mEq/L CO2 25 LAB EBAL(LOINC mEq/L ) Electrolyte Balance 12.0 LAB BUN(LOINC) 7.0-18.0 mg/dL BUN High 24.1 LAB CRE(LOINC) 0.6-1.2 mg/dL Creatinine Lvl (s) 1.0 LAB BC(LOINC) 7-27 ratio BUN/Creatinine 24 Ratio LAB CA(LOINC) 8.4-10.2 mg/dL Calcium Lvl 9.5 Performed By: #### MILTON, LIPID, GFR #### [place] [address] [place], [place] [address] #### HCV1 #### [address] [address] LIPID Collected: 05/07/2017 Status: F Source: [employer] [place] 9:55 AM [facility] REPOSITORY TYPE CODE TESTS RESULT OUT OF REFERENCE UNITS RANGE LAB CHOL(LOINC 131-200 mg/dL ) Cholesterol 163 Result Comment: Cholesterol Reference Interval: Less than 200 Desirable 200-239 Borderline high risk 240 and above High risk LAB TRIG(LOINC) 40-150 mg/dL Triglycerides 66 Result Comment: Triglyceride Reference Interval: Less than 150 Normal 150-199 Borderline high risk 200-499 High risk 500 or higher Very high risk LAB HD(LOINC) 35-90 mg/dL HDL Cholesterol 68 Result Comment: HDL Reference Interval: Less than 40 Low - high risk 60 or above Optimal/lowers risk LAB LDL(LOINC) 0-130 mg/dL LDL Cholesterol 82 Result Comment: LDL is a calculated result and requires a 12-hr fast. LDL Reference Interval: Less than 100 Optimal 100-129 Near or above optimal 130-159 Borderline high risk 160-189 High risk 190 and above Very high risk Performed By: #### MILTON, LIPID, GFR #### [address] [address] #### HCV1 #### [address] [address] .GFR Collected: 05/07/2017 Status: F Source: [employer] [place] 9:55 AM [facility] REPOSITORY TYPE CODE TESTS RESULT OUT OF REFERENCE UNITS RANGE LAB GFRAA(LOINC ml/min/1.73 ) sqm GFR 89 [place] Result Comment: GFR Population mean for , Non- Americans Ages 20-29 = 116 mL/min/1.73 sq.m. Ages 30-39 = 107 mL/min/1.73 sq.m. Ages 40-49 = 99 mL/min/1.73 sq.m. Ages 50-59 = 93 mL/min/1.73 sq.m. Ages 60-69 = 85 mL/min/1.73 sq.m. Ages 70+ = 75 mL/min/1.73 sq.m. Chronic Kidney Disease: Less than 60 mL/min/1.73 square meters End Stage Renal Disease: Less than 15 mL/min/1.73 square meters LAB GFRNO(LOINC) ml/min/1.73sqm GFR Non- >60 Result Comment: GFR Population mean for , Non- Americans Ages 20-29 = 116 mL/min/1.73 sq.m. Ages 30-39 = 107 mL/min/1.73 sq.m. Ages 40-49 = 99 mL/min/1.73 sq.m. Ages 50-59 = 93 mL/min/1.73 sq.m. Ages 60-69 = 85 mL/min/1.73 sq.m. Ages 70+ = 75 mL/min/1.73 sq.m. Chronic Kidney Disease: Less than 60 mL/min/1.73 square meters End Stage Renal Disease: Less than 15 mL/min/1.73 square meters Performed By: #### MILTON, LIPID, GFR #### [address] [address] #### HCV1 #### [place] [address] HCV Collected: 05/07/2017 Status: F Source: [facility] 9:55 AM [facility] REPOSITORY TYPE CODE TESTS RESULT OUT OF REFERENCE UNITS RANGE LAB HCV(LOINC) Negative Negative Hep C Ab LAB HCV1(LOINC ) No serological Hep C evidence of Ab Int Hepatitis C infection, although levels of anti-HCV may be undetectable in early infection. Performed By: #### MILTON, LIPID, GFR #### [address] [address] #### HCV1 #### [address] [address] ALLERGIES ALLERGIES DATE TYPE / CODE NAME / CODE REACTION SEVERITY SOURCE 04/14/2018 Drug No Known Unknown [facility] Allergy/416 Allergies/C57225 Hospital 932785(SNOM 0388(RXNORM) Repository ED CT) Drug NO KNOWN [facility] Class/[address] ALLERGIES Main [place] 1003(SNOMED Repository CT) ENCOUNTERS ENCOUNTERS ADMIT/DISCHARGE ACCOUNT NUMBER ADMITTING ENCOUNTER LOCATION SOURCE CLASS 04/21/2018 [id number] [facility] ding:[facility] Repository 03/19/2018 [id number] [facility] ding:[place] Repository 03/08/2018 [id number] [facility] ding:[facility] Repository 02/26/2018/02/27/20 [id number] Ambulatory BBuilding:OL [address] [facility] Repository 12/08/2017/12/09/19 [id number] CARYL, Ambulatory [address] Repository 11/25/2017/11/27/19 [id number] Ambulatory [address] Repository 06/04/2017/06/05/19 [id number] Ambulatory [address] ding:[facility] Repository 06/02/2017/06/03/19 [id number] Ambulatory [address] ding:[facility] Repository 05/14/2017/05/14/19 [id number] Ambulatory [address] ding:[facility] Repository 05/07/2017/05/07/19 [id number] Ambulatory [address] ding:[facility] Repository PAYERS PAYERS ENCOUNTER GUARANTOR PAYER SUBSCRIBER SOURCE 04/21/2018 SILAS Pond Primary SILAS [place] [id number] [place] Insurance:NASEEM AGARWAL: [place] MEDIC[place] SENIOR [id number] [address]Xfv: [phone] ADVANTAPolicy Number: Repository [phone] ) [id number] Date:2625-13-94[address] [place] [address]UW: 04/21/2018 Secondary NOT GIVENUNK [place] Insurance:SELF PAY [facility] Number: Effective Repository Date:2018-04-07 03/19/2018 [facility] [place] Insurance:ANTHEM MARIBETHYDOB: [place] SEN[place] [id number] Hospital [address]Hul: [phone]) ADVANTAPolicy Number: Repository [phone] () [id number] Date:[id number] [address]EJ: 03/19/2018 Secondary NOT GIVENUNK [place] Insurance:SELF PAY [facility] Number: Effective Repository Date:2018-03-15 03/08/2018 [facility] [place] Insurance:ANTHEM MARIBETHYDOB: [place]EN[place] [id number] Hospital [address]Lvv: [phone]) ADVANTAPolicy Number: Repository [phone] () [id number] Date:[id number] [address]VJ: 03/08/2018 Secondary NOT GIVENUNK [place] Insurance:SELF PAY [facility] Number: Effective Repository Date:2018-03-08 02/26/2018 SILAS [facility]ond [facility]:NASEEM SHAGGYOB: [facility]Polmercy[facility] [id number] Repository [place] Number: [place], [place] [id number] [place], [place] [address]Xak: ([phone]) Date:2018-02-26 49969Fcd: [id number] [phone] ()Tel: [phone]) Name:JUAN Hennessy () () [id number] [place] [phone] () [address]WF: 06/04/2017 SILAS Pond [facility] FLORYDOB: Insurance:ANTHEM FLORYDOB: [facility] [id number] Repository [place] Number: H[place] [id number] [place] [address]Med: [phone]) Date:2017-06-0433830Gdj: [id number] [phone] (HP)Tel: [phone]) Name:[address] (HP) (WP) [id number] [place] [phone] (WP) [id number]: 06/02/2017 [facility]:NASEEM STAHLYDOB: [facility] [id number] Repository [place] Number: [place] [id number] [place], [place] [address]Mnl: ([phone]) Date:2017-06-02Tel: [id number] [phone] (HP)Tel: [phone]) Name:N[address] Box (HP) (WP) [phone], [place] [phone] (WP) [address]KF: 05/14/2017 [facility]ond [facility]: [facility]:ANTHEM FLORYDOB: [facility] [id number] Repository [place] Number: [place] [id number] [place], [place] [address]Fco: ([phone]) Date:2017-05-08Tel: [id number] [phone] (HP)Tel: [phone]) Name:N[address] Box (HP) (WP) [phone], [place] [phone] () [id number]: 05/07/2017 SILAS Pond [facility] SILAS Pond [facility]:NASEEM [facility] [id number] Repository [place] Number: [place], [place] [id number] [place], [place] [address]Ffi: [phone] Date:2017-05-07Tel: [id number] [phone] ()Tel: [phone]) Name:JUAN Hennessy (HP) () [id number], [place] [phone] () [phone]:
== END ==
PROVIDERS: Family Provider Family Medicine; PCP Family Medicine; Referring Provider Nurse Practitioner Adult Health; Visit Provider Nurse Practitioner Adult Health
DX: R31.1 Benign essential microscopic hematuria (principal)
CPT/HCPCS: 81001

== ENCOUNTER → 2018-03-19 07:46 | Outpatient (CLI) | payer MEDICARE, SELFPAY ==
--- NOTE | 2018-03-19 07:51 | US_ITS ---
STUDY: RENAL ULTRASOUND - COMPLETE REASON FOR EXAM: Male, 72 years old. History of bladder stones. TECHNIQUE: Ultrasound evaluation of the kidneys was performed with real-time and static bunch-scale imaging. COMPARISON: None. FINDINGS: RIGHT KIDNEY: Normal location of the right kidney, which is normal in size. The right kidney measures 10.2 x 5.5 x 4.3 cm. There is a normal cortex of the right kidney. The renal cortex measures 1.3 cm. There is demonstrated hypoechoic cyst of the right kidney measuring 1.3 x 1.3 x 1.6 cm with additional cyst measuring 1.4 x 1.3 x 1.3 cm within the mid portion of the kidney with slight exophytic component. There is a nonobstructive renal hypoechoic 3 mm nephrolith within the renal pelvis. There is no right hydronephrosis. DISTAL RIGHT URETER: There is non-visualization of the distal right ureter. There is no demonstrated right ureterovesical junction calculus. There is a visualized right ureteral jet. LEFT KIDNEY: Normal location of the left kidney, which is normal in size. The left kidney measures 10.8 x 4.7 x 5.9 cm. There is a normal cortex of the left kidney. The renal cortex measures 0.9 cm. There is no left renal mass or cyst. There is a nonobstructive 4 mm cortical renal nephrolith is present. There is no left hydronephrosis. DISTAL LEFT URETER: There is non-visualization of the distal left ureter. There is no demonstrated left ureterovesical junction calculus. There is a visualized left ureteral jet. Right sac I.V.C.: The IVC is patent. BLADDER: The distended urinary bladder has a volume of 40 ml. The empty urinary bladder has a volume of 4 ml. There is a normal wall thickness of the distended urinary bladder. The bladder base demonstrates mass effect by an enlarged prostate measuring 5.1 x 3.5 x 5.0 cm.. There are dependent layering bladder stones measuring 7 and 9 mm respectively. US/Kidney and Bladder IMPRESSION: 1. Simple appearing right renal cysts as above with 3 mm nonobstructing nephrolith. 2. Left renal nonobstructing 4 mm nephrolith. 3. Dependent layering bladder stones measuring 7 and 9 mm. 2. Enlarged prostate abutting the inferior bladder measuring 5.1 x 3.5 x 5.0 cm. Electronically Signed: Martell Grubbs DO at 9:35 EST , Service support ,
== END ==
PROVIDERS: Family Provider Family Medicine; PCP Family Medicine; Referring Provider Nurse Practitioner Adult Health; Visit Provider Nurse Practitioner Adult Health
DX: N21.0 Calculus in bladder (principal); R82.998 Other abnormal findings in urine
CPT/HCPCS: 76770; 87086

== ENCOUNTER 2018-04-21 10:32 | Day surgery (SDC) | payer MEDICARE, SELFPAY ==
[2018-04-14 09:06] VITALS: BP 142/85; PULSE 57; RESP 16; TEMP 37; O2SAT 97; BMI 26.2
--- NOTE | 2018-04-14 09:36 | SDCEKG_ITS ---
Test Reason : Blood Pressure : / mmHG Vent. Rate : 048 BPM Atrial Rate : 048 BPM P-R Int : 212 ms QRS Dur : 090 ms QT Int : 412 ms P-R-T Axes : 069 044 068 degrees QTc Int : 368 ms Marked sinus bradycardia with 1st degree A-V block Abnormal ECG Confirmed by ROCKY AUSTIN, BISHOP ([id number]), script editor ERIC CHAPARRO ([id number]) on 04/15/2018 4:04:30 PM Referred By: Thompson Ennis Confirmed By:BISHOP HIDALGO MD
[2018-04-21] VITALS (9 sets, daily range): BP systolic 130–162; BP diastolic 64–79; PULSE 46–55; RESP 16; TEMP 36.3–36.8; O2SAT 93–98; BMI 26.2
--- NOTE | 2018-04-21 13:40 | PROS_PTH ---
PATIENT: TAVO LANDERS LOC: [facility] [place][id number] AGE/SX: 72/M ROOM: RE04/21/[address]: Dr. Thompsno Ennis MD : [id number] BED: DIS: 04/22/2018 SPEC #: [id number] RECD: 04/22/18 07:12 STATUS: ANITA MARGI #: [id number] JULIO: 04/21/18 13:[address]: Thompson Ennis DEPT: SURGICAL PATHOLOGY RECD BY: Alirio White ENTERED: 04/22/18 08:27 SP TYPE: TURP CONNER DR: Dr. Elroy Lopez, DO Tissues: Prostate, NOS Procedures: Surgery Specimen Level IV HEADER OPERATION: Cystoscopy, transurethral resection of prostate, Olympus PRE-OP DIAGNOSIS: Benign prostatic hyperplasia with lower urinary tract symptoms; elevated PSA; nocturia; calculus in bladder TISSUE SUBMITTED: Prostate tissue MICROSCOPIC DIAGNOSIS Prostate, transurethral resection: Benign nodulular hyperplasia, glandular and stromal types. Mild chronic inflammation. AM:anival 04/23/18 MICROSCOPIC DESCRIPTION Slides are reviewed. GROSS DESCRIPTION Received is one container labeled with the patient's name and designated prostate tissue. The specimen consists of multiple irregular fragments of pink-dawkins, rubbery, soft tissue that in aggregate weigh 29.7 gm and measure in aggregate 8 x 8 x 1 cm. Trichologist portions are submitted in 12 cassettes. / AM:anival 04/22/18 TC:3 CPT: 41245
[2018-04-21] MEDS: Cefazolin 2 GM in 0.9% Normal Saline 100 ML IV (14:25)
--- NOTE | 2018-04-21 16:03 | PCM.OPRPT ---
Report of Operation Date of Procedure: 04/21/18 Pre-Operative Diagnosis: BPH with obstruction and bladder stones multiple and large Post-Operative Diagnosis: Same Surgery/Procedure Performed:: Cystoscopy laser of large bladder stones and removal of stone fragments, transurethral resection of the prostate Description of Surgical Findings:: 72-year-old male taken back to the operating room after smooth induction of anesthesia he was placed supine on the table penis and testicles are prepped and draped in usual sterile fashion went into the bladder with a 26 Nauruan continuous use flow resectoscope we used the laser bridge I then encountered for 5 large stones in the base of the bladder. Used the 600 ?m laser fiber and laser the stones into little tiny pieces, once the stone was completely lasered then I Ellik out all the stone fragments out of the bladder I then switched over to the bipolar Olympus resectoscope were used a noncontinuous flow 24 Nauruan resectoscope this was placed into the bladder with 30 degree lens we started resection he had bilateral large hypertrophy with bilateral tissue we resected the right lobe of the prostate we then resect the left lobe the prostate and then carefully resected the apical tissue then resected the roof the prostate and then had prostate channel wide open resected with no flapping tissue obtained good hemostasis Ellik out all the chips of the bladder and then placed a 22 Nauruan catheter into the bladder and continues bladder irrigation had a nice resection all the way from the verumontanum to the bladder neck with no obstructing tissue. The urine was fairly clear at the end of the resection on continuous bladder irrigation. Type of Anesthesia:: General Drains: [address] - Admit VTE Documentation VTE Present on Admission: No VTE Mechan Device Prophylaxis: SCD's
--- NOTE | 2018-04-21 16:08 | DCINST_ITS ---
Discharge Diet: Light diet - advance as tolerated Discharge Activity: May not drive while taking narcotic pain medications., May Shower Call your doctor if your incision/area has: Sudden Increased Bleeding Suture Line Care: Avoid Pulling/Pushing, Avoid Pinching/Bending Instructions: Transurethral Resection of the Prostate (TURP): Home Recovery Allergies/Adverse Reactions: Allergies No Known Allergies Allergy (Verified 04/14/18 08:58) Medications to take at Discharge Atenolol [Tenormin (Beta Sharif)] 50 mg PO DAILY 05/09/15 Calcium Carbonate [Calcium] 1,200 mg PO BID 05/09/15 Cholecalciferol (VIT D3) [Vitamin D] 1,000 unit PO BID 05/09/15 Doxycycline Hyclate 20 mg PO BID 05/09/15 Lovastatin [Mevacor] 60 mg PO QHS 05/09/15 NIFEdipine [Procardia Xl] 60 mg PO DAILY 05/09/15 Dutasteride [Avodart] 0.5 mg PO DAILY 04/14/18 Multivit-Min/FA/Lycopen/Lutein [Centrum Silver Tablet] 1 each PO DAILY 04/14/18 Ciprofloxacin [Cipro] 500 mg PO BID #10 tablet 04/21/18 Ibuprofen 600 mg PO Q6H PRN PRN #20 tablet 04/21/18 Primary Care Physician: Elroy Lopez DO [Primary Care Provider] - Test Results: Test results from this visit will be discussed in further detail at your follow- up appointment, if applicable. Please Follow Up With: Thompson Ennis MD When: in 2 weeks, please call to make an appointment.
[2018-04-21] MEDS: Ketorolac 15 MG/ML Vial IV (17:15)
[2018-04-21] MEDS: 0.9% Normal Saline 1,000 ML 125 ML IV ×2 (17:16→22:59)
[2018-04-21] MEDS: Atorvastatin Calcium 20 MG Tablet PO (22:19)
[2018-04-21] MEDS: Docusate Sodium 100 MG Capsule PO (22:19)
[2018-04-21] MEDS: Ciprofloxacin 500 MG Tablet PO (22:19)
[2018-04-21] MEDS: Calcium Carbonate 500 MG Tablet 1000 MG PO (22:19)
[2018-04-22 04:26] VITALS: BP 146/74; PULSE 52; RESP 16; TEMP 36.6; O2SAT 97
[2018-04-22 05:59] LABS: Hematocrit 43.1 % (40-54); Hemoglobin 14.4 g/dl (13.0-16.5); Mean Corp Hgb Conc 33.4 g/gl (32-36); Mean Corpuscular Hgb 31.2 pg (27.0-32.0); Mean Corpuscular Volume 93.5 fL (80-94); Platelet Count 147 K/mm3 (150-450); RBC Distribution Width CV 13.3 % (11.6-14.6); Red Blood Count 4.61 M/mm3 (4.6-6.2); White Blood Count 11.2 K/mm3 (4.4-11.0)
[2018-04-22 06:08] LABS: Anion Gap 11 (5-15); BUN 15 mg/dL (7-18); BUN/Creat Ratio 15.8 RATIO (10-20); Calcium,Total 8.4 mg/dL (8.5-10.1); Chloride 106 mmol/L (98-107); Creatinine, Serum 0.95 mg/dL (0.70-1.30); EST Glomerular Filtration Rate 82 mL/min (>60); Est Glom Filt Rate - Afr Amer 100 mL/min (>60); Estimated Creatinine Clearance 72.57 ml/min; Glucose 149 mg/dL (74-106); Potassium 4.3 mmol/L (3.5-5.1); Scan Indicated on CBC? Y/N NO; Sodium Level 139 mmol/L (136-145)
[2018-04-22] MEDS: 0.9% Normal Saline 1,000 ML 125 ML IV (06:51)
--- NOTE | 2018-04-22 07:42 | PCM.PN.BLA ---
Progress Note urine clear with no clots d/c 3 way [place] this am home after is able to void.
[2018-04-22] MEDS: Ciprofloxacin 500 MG Tablet PO (08:39)
[2018-04-22] MEDS: Docusate Sodium 100 MG Capsule PO (08:39)
[2018-04-22] MEDS: Multivitamins,Ther W-Minerals Tablet 1 TABLET PO (08:39)
[2018-04-22] MEDS: Calcium Carbonate 500 MG Tablet 1000 MG PO (08:39)
[2018-04-22] MEDS: Pantoprazole Sodium 40 MG Tablet PO (08:40)
[2018-04-22] MEDS: NIFEdipine 60 MG Tablet PO (08:40)
[2018-04-22] MEDS: Atenolol 50 MG Tablet PO (08:40)
[2018-04-22 09:34] VITALS: BP 137/76; PULSE 60; RESP 18; TEMP 36.6; O2SAT 98
--- OUTSIDE RECORDS SUMMARY | 2018-06-23 07:52 | XMS RPT_ITS ---
:1945 Author Organization OHIP Care Team Providers Name Role Phone ELROY LOPEZ DO D Attending Unavailable JOHN DO ELROY D Primary Care Unavailable JOHN DO ELROY D Attending Unavailable JOHN DO ELROY D Primary Care Unavailable ROSEMARY HARRELL CNP Attending Unavailable JOHN DO, ELROY D Primary Care Unavailable MICAELA MIRANDA MD Attending Unavailable JOHN DO, ELROY D Primary Care Unavailable THOMPSON MARTINEZ MD Attending Unavailable JOHN DO ELROY D Primary Care Unavailable NASH ARELLANO (PA) Attending Unavailable ELROY LOPEZ Referring Unavailable MANPREET HUTSON Admitting Unavailable MANPREET HUTSON Attending Unavailable NASH ARELLANO (BRENDA) Referring Unavailable Rosemary Harrell Attending Unavailable Elroy Lopez Primary Care Unavailable Rosemary Harrell Referring Unavailable Rosemary Harrell Attending Unavailable Rosemary Harrell Referring Unavailable Elroy Lopez Primary Care Unavailable Thompson Martinez Attending Unavailable Thompson Martinez Referring Unavailable Elroy Lopez Primary Care Unavailable NatachamirnabrendaTonny moffett Attending Unavailable Thompson Martinez Referring Unavailable PROBLEMS PROBLEMS DATE TYPE CONDITION / CODE ATTENDING STATUS SOURCE 04/23/2018 Unknown R94.31 - Abnormal [place], Active [place] electrocardiogram [facility] [ECG] [EKG] / Hospital R94.31(ICD-10) Repository 04/23/2018 Unknown R00.1 - Bradycardia, [place], Active [place] unspecified / [facility] R00.1(ICD-10) Hospital Repository 03/19/2018 Unknown R82.998 - Other Julio Cesar, Active [place] [facility] R82.998(ICD-10) Repository 03/09/2018 Unknown R31.1 - Benign Julio Cesar, Active [place] essential microscopic [facility] hematuria / Hospital R31.1(ICD-10) Repository 12/08/2017 Active Family history of ACRYL, Active [place] malignant neoplasm of [facility] Main digestive organs / [place] Z80.0(ICD-10) Repository PROCEDURES PROCEDURES No Procedure Records FoundRESULTS RESULTS CBC-COMPLETE BLOOD CNT Collected: 04/22/2018 Status: F Source: [place] NO DIFF 5:28 AM [facility] REPOSITORY TYPE CODE TESTS RESULT OUT OF RANGE REFERENCE UNITS LAB L100.1000 4.4-11.0 K/mm3 High WBC 11.2 LAB L100.1200 4.6-6.2 M/mm3 Normal RBC 4.61 LAB L100.1300 13.0-16.5 g/dl Normal HGB 14.4 LAB L100.1400 40-54 % Normal HCT 43.1 LAB L100.1500 80-94 fL Normal MCV 93.5 LAB L100.1600 27.0-32.0 pg Normal MCH 31.2 LAB L100.1700 32-36 g/gl Normal MCHC 33.4 LAB L100.1810 11.6-14.6 % Normal RDW CV 13.3 LAB L100.1820 35.1-43.9 fl High RDW SD 44.0 LAB L100.1900 150-450 K/mm3 Low PLT 147 LAB L100.2000 6.2-12.0 fl Normal MPV 12.0 Performed By: #### L100.0500 #### [facility] [address] [place], [address] BASIC METABOLIC Collected: 04/22/2018 Status: F Source: [place] PROFILE (BMP) 5:28 AM [facility] REPOSITORY TYPE CODE TESTS RESULT OUT OF RANGE REFERENCE UNITS LAB L501.0100 74-106 mg/dL High GLU 149 Result Comment: Fasting Glucose result greater than or equal to 126 mg/dL suggests DIABETES MELLITUS per A.D.A. criteria. Please note revised GLUCOSE reference range effective 2017. LAB L501.1000 7-18 mg/dL Normal BUN 15 LAB L501.1100 0.70-1.30 mg/dL Normal CREAT,SERUM 0.95 Result Comment: The validity of the calculated GFR AND GFRAA in patients over 70 years has not been determined. Clinical correlation is essential. LAB L501.1110 >60 mL/min Normal EST GFR 82 Result Comment: Non- GFR Calc LAB L501.1115 >60 mL/min Normal EST GFR - AA 100 Result Comment: GFR Calc LAB L501.1255 ml/min Normal Estimated CRCL 72.57 LAB L501.1300 10-20 RATIO Normal BUN/CRE 15.8 LAB L501.2200 8.5-10 mg/dL Low .1 CA 8.4 LAB L501.5300 136-14 mmol/L Normal 5 NA 139 LAB L501.5600 3.5-5. mmol/L Normal 1 K 4.3 LAB L501.5900 98-107 mmol/L Normal CL 106 LAB L501.6100 21.0-3 mmol/L Normal 2.0 CO2 22.0 LAB L501.6200 5-15 Normal GAP 11 Performed By: #### L500.2500 #### [facility] [address] [place], [address] DISCHARGE INSTRUCTION Observed: 04/21/2018 Status: F Source: [place] 4:08 PM [facility] REPOSITORY [facility] Medical Records Department [address] [place] [address] Instructions for Home/Discharge Instructions 04/21/18 1606 MR#: [id number] Acct: [id number] Name: SILAS WOOD Rep #: [id number] : 1945 72 From: Thompson Martinez MD PCP: Elroy Lopez DO Status: REG [facility] Discharge Diet: Light diet - advance as tolerated Discharge Activity: May not drive while taking narcotic pain medications., May Shower Call your doctor if your incision/area has: Sudden Increased Bleeding Suture Line Care: Avoid Pulling/Pushing, Avoid Pinching/Bending Instructions: Transurethral Resection of the Prostate (TURP): Home Recovery Allergies/Adverse Reactions: Allergies No Known Allergies Allergy (Verified 04/14/18 08:58) Medications to take at Discharge Atenolol [Tenormin (Beta Sharif)] 50 mg PO DAILY 05/09/15 Calcium Carbonate [Calcium] 1,200 mg PO BID 05/09/15 Cholecalciferol (VIT D3) [Vitamin D] 1,000 unit PO BID 05/09/15 Doxycycline Hyclate 20 mg PO BID 05/09/15 Lovastatin [Mevacor] 60 mg PO QHS 05/09/15 NIFEdipine [Procardia Xl] 60 mg PO DAILY 05/09/15 Dutasteride [Avodart] 0.5 mg PO DAILY 04/14/18 Multivit-Min/FA/Lycopen/Lutein [Centrum Silver Tablet] 1 each PO DAILY 04/14/18 Ciprofloxacin [Cipro] 500 mg PO BID #10 tablet 04/21/18 Ibuprofen 600 mg PO Q6H PRN PRN #20 tablet 04/21/18 Primary Care Physician: Elroy Lopez DO [Primary Care Provider] - Test Results: Test results from this visit will be discussed in further detail at your follow-up appointment, if applicable. Please Follow Up With: Thompson Martinez MD When: in 2 weeks, please call to make an appointment. 04/21/18 8611 <Electronically signed by Thompson Martinez MD> Date Thompson Martinez MD CC: Elroy Lopez DO Signed OPERATIVE REPORT Observed: 04/21/2018 Status: F Source: [place] 4:06 PM [facility] REPOSITORY [facility] Medical Records Department [address] [place] [address] Operative Report 04/21/18 1603 MR#: [id number] Acct: [id number] Name: SILAS WOOD Rep #: [id number] : 1945 72 From: Thompson Martinez MD PCP: Elroy Lopez DO Status: REG [facility] Y Location: [place] [address] Report of Operation Date of Procedure: 04/21/18 Pre-Operative Diagnosis: BPH with obstruction and bladder stones multiple and large Post-Operative Diagnosis: Same Surgery/Procedure Performed:: Cystoscopy laser of large bladder stones and removal of stone fragments, transurethral resection of the prostate Description of Surgical Findings:: 72-year-old male taken back to the operating room after smooth induction of anesthesia he was placed supine on the table penis and testicles are prepped and draped in usual sterile fashion went into the bladder with a 26 Kazakh continuous use flow resectoscope we used the laser bridge I then encountered for 5 large stones in the base of the bladder. Used the 600 m laser fiber and laser the stones into little tiny pieces, once the stone was completely lasered then I Ellik out all the stone fragments out of the bladder I then switched over to the bipolar Olympus resectoscope were used a noncontinuous flow 24 Kazakh resectoscope this was placed into the bladder with 30 degree lens we started resection he had bilateral large hypertrophy with bilateral tissue we resected the right lobe of the prostate we then resect the left lobe the prostate and then carefully resected the apical tissue then resected the roof the prostate and then had prostate channel wide open resected with no flapping tissue obtained good hemostasis Ellik out all the chips of the bladder and then placed a 22 Kazakh catheter into the bladder and continues bladder irrigation had a nice resection all the way from the verumontanum to the bladder neck with no obstructing tissue. The urine was fairly clear at the end of the resection on continuous bladder irrigation. Type of Anesthesia:: General Drains: [address] - Admit VTE Documentation VTE Present on Admission: No VTE Mechan Device Prophylaxis: SCD's 04/21/18 1606 <Electronically signed by Thompson Martinez MD> Date Thompson Martinez MD CC: Elroy Lopez DO; Thompson Martinez MD Signed PROSTATE, TUR Observed: 04/21/2018 Status: F Source: [place] 1:40 PM [facility] REPOSITORY Patient: SILAS WOOD : 1945 (72/M) Acct Num: [id number] Phys: Raymon AUSTIN,Thompson Parks Unit Num: [id number] Loc: [facility] Specimen: [id number] Received: 04/22/18711 Spec Type: TURP TISSUES 1 TISSUES: Prostate, NOS GROSS DESCRIPTION Received is one container labeled with the patient's name and designated prostate tissue. The specimen consists of multiple irregular fragments of pink-dawkins, rubbery, soft tissue that in aggregate weigh 29.7 gm and measure in aggregate 8 x 8 x 1 cm. Manager Strategy portions are submitted in 12 cassettes. / AM:anival 04/22/18 TC:3 CPT: 74167 HEADER OPERATION: Cystoscopy, transurethral resection of prostate, Olympus PRE-OP DIAGNOSIS: Benign prostatic hyperplasia with lower urinary tract symptoms; elevated PSA; nocturia; calculus in bladder TISSUE SUBMITTED: Prostate tissue MICROSCOPIC DESCRIPTION Slides are reviewed. MICROSCOPIC DIAGNOSIS Prostate, transurethral resection: Benign nodulular hyperplasia, glandular and stromal types. Mild chronic inflammation. AM: 04/23/18 Signed Benitez Calles DO 04/23/18 <signature on file> Performed By: #### PPROS #### [facility] [address] [place], [place], [address] 12 LEAD ELECTROCARDIOGRAM Observed: 04/15/2018 Status: F Source: [place] 4:04 PM [facility] REPOSITORY [facility] Cardiovascular Services [address] [place] [address] EK - [facility] 04/14/18 0930 MR#: [id number] Acct: [id number] Name: SILAS WOOD Rep #: [id number] : 1945 72 From: Tonny Hidalgo MD Attending Dr: Raymon AUSTIN,Thompson Parks Status: PRE [facility] Ordering Dr: Cyrus Davis MD Date: 04/14/18 Location: [facility] Sex: M C Admitted: Test Reason : [...] ECG Confirmed by ROCKY AUSTIN, TONNY ([id number]), brands editor ERIC CHAPARRO ([id number]) on 04/15/2018 4:04:30 PM Referred By: Thompson Martinez Confirmed By:TONNY HIDALGO MD 04/15/18 1604 Date Tonny Hidalgo MD CC: Cyrus Davis MD; Elroy Lopez DO; Thompson Martinez MD Date Dictated: 04/14/18929 Date Transcribed: 04/14/18929 Drafting Technician: Signed KIDNEY AND BLADDER Observed: 03/19/2018 Status: F Source: [place] 7:51 AM [facility] REPOSITORY [facility] Imaging Services [address] [place] [address] Kidney and Bladder MR#: [id number] Acct: [id number] Name: DEBORAH WOODEL Dejah Rep #: [id number] : 1945 M 72 From: Martell Grubbs DO PCP: Elroy Lopez DO Status: REG CLI Study: Kidney and Bladder Date of Exam: 03/19/18 Exam# [id number] Ordering Dr: Rosemary Harrell FOREST TECHNOLOGY PROFESSOR-C STUDY: RENAL ULTRASOUND - COMPLETE REASON FOR [...] EST , Service support , CC: Elroy John DO; Rosemary Harrell NP Drafting Technician: Signed Observed: 03/15/2018 Status: F Source: [place] CULTURE, URINE 8:33 AM [facility] REPOSITORY Urine Culture Below infection level. ORGANISM 1: Streptococcus group B Herrick Count 1000-10,000 Performed By: #### M100.0650 #### [facility] [address] [place], [place], [id number] URINALYSIS, COMPLETE Collected: 03/08/2018 Status: C Source: [place] 8:30 AM [facility] REPOSITORY Order Comment: How was Urine Obtained? [...] CRYSTAL 4+ Performed By: #### L400.0001 #### [facility] [address] [facility] [place], [place], [id number] PSA Collected: 02/26/2018 Status: F Source: [facility] 1:50 PM [facility] REPOSITORY TYPE CODE TESTS RESULT OUT OF REFERENCE UNITS RANGE LAB PSA(LOINC) 0.00-4.00 ng/mL High Prostate 4.47 Specific Antigen Performed By: #### PSA #### [facility] [address] [place] [address] NURSING PROG Observed: 12/08/2017 Status: COMPLETED Source: [place] 12:15 PM [facility] REPOSITORY HNO ID: [id number] Author: Hillary Begum) SORAYA Yu Service: Nursing Author Type: Registered Nurse Type: Nursing Progress Note Filed: 12/08/2017 12:15 PM Note Text: Discharged home via wheel chair in the care of his friend, no complaints, all safety maintained. PT ED Observed: 12/08/2017 Status: COMPLETED Source: [place] 12:10 PM [facility] REPOSITORY HNO ID: [id number] Author: Hillary PerezRn) Gigi, RN Service: Nursing Author Type: Registered Nurse [...] NURSING PROG Observed: 12/08/2017 Status: COMPLETED Source: [place] 11:59 AM [facility] REPOSITORY HNO ID: [id number] Author: Hillary PerezRnJaycee Yu RN Service: Nursing Author Type: Registered Nurse Type: Nursing Progress Note Filed: 12/08/2017 11:59 AM Note Text: Tolerating snack, no complaints. PT ED Observed: 12/08/2017 Status: COMPLETED Source: [place] 11:51 AM [facility] REPOSITORY HNO ID: [id number] Author: Hillary PerezRnJaycee Yu RN Service: Nursing Author Type: Registered Nurse Type: Patient Education Filed: 12/08/2017 11:54 AM Note Text: Dr Hutson to visit with patient and friend., all questions answered, no complaints, all safety maintained. NURSING PROG Observed: 12/08/2017 Status: COMPLETED Source: [place] 11:49 AM [facility] REPOSITORY HNO ID: [id number] Author: Hillary Yu RN Service: Nursing Author Type: Registered Nurse Type: Nursing Progress Note Filed: 12/08/2017 11:50 AM Note Text: Pt into Endo recovery room in satisfactory condition. Resting on left side. Pt. sleepy but arousable. Abdomen soft, no complaints, all safety maintained. Will continue to monitor. NURSING PROG Observed: 12/08/2017 Status: COMPLETED Source: [place] 11:40 AM [facility] REPOSITORY HNO ID: [id number] Author: Yahaira Zarco RN Service: Nursing Author Type: Registered Nurse Type: Nursing Progress Note Filed: 12/08/2017 11:40 AM Note Text: Patient did not experience a fall within the Intraoperative area. Patient did not experience a burn within the Intraoperative area. Yahaira Zarco RN NURSING PROG Observed: 12/08/2017 Status: COMPLETED Source: [place] 11:20 AM [facility] REPOSITORY HNO ID: [id number] Author: Hillary Yu RN Service: Nursing Author Type: Registered Nurse Type: Nursing Progress Note Filed: 12/08/2017 12:26 PM Note Text: Discharged at 1220 not 1120, mis typed. NURSING PROG Observed: 12/08/2017 Status: COMPLETED Source: [place] 11:20 AM [facility] REPOSITORY HNO ID: [id number] Author: Hillary Yu RN Service: Nursing Author Type: Registered Nurse Type: Nursing Progress Note Filed: 12/08/2017 12:27 PM Note Text: Discharged at 1220 not 1120, mis typed. Patient did not experience a fall prior to discharge. Patient did not experience a burn prior to discharge. Hillary Yu RN NURSING PROG Observed: 12/08/2017 Status: COMPLETED Source: [place] 11:12 AM [facility] REPOSITORY HNO ID: [id number] Author: Dana Gillette RN Service: (none) Author [...] PT ED Observed: 12/08/2017 Status: COMPLETED Source: [place] 9:34 AM [facility] REPOSITORY HNO ID: [id number] Author: Dana Gillette RN Service: (none) Author [...] HISTORY PHYSICAL Observed: 12/08/2017 Status: COMPLETED Source: [place] 9:31 AM [facility] REPOSITORY HNO ID: [id number] Author: Manpreet Hutson Service: General Surgery Author Type: Physician Type: HANDP Filed: 12/08/2017 9:32 AM Note Text: HISTORY AND PHYSICAL ? Silas Wood 1945 ? REFERRING PHYSICIAN: Elroy Lopez DO ? CHIEF COMPLAINT: colon consult ? [...] Laterality Date - COLONOSCOP W/ OR W/O [facility] ? 08/24/12 ? Colonoscopy-return scope 2017 [...] 4,000 mg by mouth three times daily. Ckrhwiaytqmhi-Joriewot-Qlvsct (CENTRUM SILVER) Tab Take 1 tablet by mouth once daily. ? No current facility-administered medications for this visit. ? ALLERGIES: Patient has no known allergies. ? PERSONAL HISTORY: SOCIAL?HISTORY Social History Marital status: Single Spouse name: Years of education: Number of children: 0 ? 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* ? Social History Main Topics Smoking [...] with more than 50% of the total khof-ue-cmxn time of the visit in counseling / coordination of care. ? ? Nash Arellano PA-C PROGRESS Observed: 11/25/2017 Status: COMPLETED Source: [place] 11:08 AM [facility] REPOSITORY O ID: [id number] Author: Nash Arellano (Pa) Service: (none) Author Type: Physician Operator Engineer Type: Progress Notes Filed: 11/25/2017 5:49 PM [...] Laterality Date - COLONOSCOP W/ OR W/O [facility] 08/24/12 Colonoscopy-return scope 2017 - PAST [...] 4,000 mg by mouth three times daily. Qnfvbtmgfyhgu-Cbtdcnbr-Yxtlba (CENTRUM SILVER) Tab Take 1 tablet by mouth once daily. No current facility-administered medications for this visit. ALLERGIES: Patient has no known allergies. 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 Elroy Lopez, . Return to Clinic: The patient is instructed to follow-up with me 1 week post operatively. I spent 30 minutes in the visit, with more than 50% of the total wmlp-hd-alvj time of the visit in counseling / coordination of care. ADAL Tejeda Observed: 11/25/2017 Status: COMPLETED Source: [place] 9:00 AM [facility] REPOSITORY Office Visit (GENSWS) SILAS WOOD ([id number]) 1945 M Date Time Provider Department 11/25/17 9:00 AM NASH ARELLANO (PA) During your visit today, we recorded the [...] Laterality Date - COLONOSCOP W/ OR W/O [facility] 08/24/12 Colonoscopy-return scope 2017 - PAST [...] 4,000 mg by mouth three times daily. Adewnfwpuosnx-Lokthdbs-Ygungp (CENTRUM SILVER) Tab Take 1 tablet by mouth once daily. No current facility-administered medications for this visit. ALLERGIES: Patient has no known allergies. PERSONAL HISTORY: Social History Marital status: Single Spouse name: Years of education: Number of children: 0 Occupational History Occupation Employer Comment DEL[employer]ERY [employer]* Social History Main Topics Smoking status: [...] with more than 50% of the total vdyz-lj-iueu time of the visit in counseling / coordination of care. Nash Arellano PA-C Referring Provider: ELROY LOPEZ [[id number]] Allergies As of Date: 11/25/2017 (No Known Allergies) Date Reviewed: 11/25/2017 Reviewed by: Nash (Brenda) - Fully Assessed Reason for Visit: colon consult [Other] Primary Visit Diagnosis:Encounter for screening for malignant neoplasm of colon [Z12.11] Other Visit Diagnosis:Family history of colon cancer [Z80.0] Order(s):peg 3350-Electrolytes (GOLYTELY) 236-22.74-6.74 - 5.86 gram suspensionTake 4,000 mL by mouth one time only for 1 dose.Disp: 1 BottleRfl: 0 COLONOSCOPY, SCREENING, HIGH RISK [[id number]] Order #: [id number] FUTURE Prescriptions as of 11/25/2017 Sig: DOXYCYCLINE [...] Take 4,000 mg by mouth three * JTCFGSQIIRRR-PXOJXABX-JLHFGN * Take 1 tablet by mouth once d* Problem List As Of Date 11/25/2017 Noted Resolved Unspecified essential hypertension [I10] Hypercholesteremia [E78.00] Elevated PSA [R97.20] Visit Notes: >> Xin Hernadez DARIO ThuNov 25, 2017 9:03 AM Status: Signed [...] N/A Last Colonoscopy: 2012 Xin Hernadez LPN Prescriptions ordered this encounter Disp Refills Start End PEG 3350-ELECTROLYTES 236 GRAM-22.74* 1 Zachary* 0 11/25/2017 11/25/2017 Route: ORAL Sig: Take 4,000 mL by mouth one time only for 1 dose. Follow-up and Disposition History Recorded Encounter Status:Closed by NASH ARELLANO PA-C on 11/25/17 HOSP Observed: 11/25/2017 Status: COMPLETED Source: [place] 12:00 AM [facility] REPOSITORY Patient:Silas Wood MRN: <[id number]> Height:No patient height recorded for this patient. Weight:179 lb 14.3 oz (81.6 kg) Outpatient Medications as of 12/08/17: doxycycline 20 mg tablet dutasteride (AVODART) 0.5 mg capsule NIFEdipine SR (NIFEDICAL XL) 60 mg 24 hr tablet atenolol 50 mg tablet Lovastatin 40 mg tablet DOXYCYCLINE HYCLATE ORAL CALCIUM CARBONATE/VITAMIN D3 (CALCIUM + D ORAL) cholecalciferol, vitamin D3, 4,000 unit cap Szzbjqjqwgrok-Bwrhurtd-Tivfbo (CENTRUM SILVER) Tab Admission/Clinic Administered Medications as of 12/08/17: lactated ringers infusion Problem List: Unspecified essential hypertension [I10] Hypercholesteremia [E78.00] Elevated PSA [R97.20] Allergies: No Known Allergies Date Verified:12/08/17 Lab Values No results within the last 30 days for the following basenames: K,HCT Progress Notes ([facility]): Olivier Chaparro 11/25/2017 9:47 AM Signed 12-08-[address] Caryl Chaparro Progress Notes ([facility]): Xin Hernadez LPN 11/25/2017 9:04 AM [...] Laterality Date - COLONOSCOP W/ OR W/O [facility] 08/24/12 Colonoscopy-return scope 2017 - PAST [...] 4,000 mg by mouth three times daily. Dtmbzebbhvamx-Hfgaewyq-Xopfve (CENTRUM SILVER) Tab Take 1 tablet by mouth once daily. No current facility-administered medications for this visit. ALLERGIES: Patient has no known allergies. 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 Nash Arellano PA-C PSA Collected: 06/02/2017 Status: F Source: [facility] 1:59 PM [facility] REPOSITORY TYPE CODE TESTS RESULT OUT OF REFERENCE UNITS RANGE LAB PSA(LOINC) 0.00-4.00 ng/mL High Prostate 5.56 Specific Antigen Result Comment: Above normal(expected)range Performed By: #### PSA #### [place] [address] [place], [place] [address] BMP Collected: 05/07/2017 Status: F Source: [facility] 9:55 AM [facility] REPOSITORY TYPE CODE TESTS RESULT OUT OF [...] mg/dL Calcium Lvl 9.5 Performed By: #### BMP, LIPID, GFR #### [address] [address] #### HCV1 #### [address] [address] LIPID Collected: 05/07/2017 Status: F Source: [facility] 9:55 AM [facility] REPOSITORY TYPE CODE TESTS RESULT OUT OF [...] above Very high risk Performed By: #### BMP, LIPID, GFR #### [facility] [address] [place], [place] [address] #### HCV1 #### [facility] [address] [place] [address] .GFR Collected: 05/07/2017 Status: F Source: [facility] 9:55 AM [facility] REPOSITORY TYPE CODE TESTS RESULT OUT OF REFERENCE UNITS RANGE LAB GFRAA(LOINC ml/min/1.73 ) sqm GFR 89 Guatemalan Result Comment: GFR Population mean for , [...] 15 mL/min/1.73 square meters Performed By: #### BMP, LIPID, GFR #### [address] [address] #### HCV1 #### Jasmin [place] [id number] HCV Collected: 05/07/2017 Status: F Source: [facility] 9:55 AM [facility] REPOSITORY TYPE CODE TESTS RESULT OUT OF REFERENCE UNITS RANGE LAB HCV(LOINC) Negative Negative Hep C Ab LAB HCV1(LOINC ) No serological Hep C evidence of Ab Int Hepatitis C infection, although levels of anti-HCV may be undetectable in early infection. Performed By: #### BMP, LIPID, GFR #### [address] [address] #### HCV1 #### [place] [id number] ALLERGIES ALLERGIES DATE TYPE / CODE NAME / CODE REACTION SEVERITY SOURCE 04/14/2018 Drug No Known Unknown [facility] Allergy/416 Allergies/O04411 Hospital 297565(SNOM 0388(RXNORM) Repository ED CT) Drug NO KNOWN [facility] Class/40746 ALLERGIES [facility] 1003(SNOMED Repository CT) ENCOUNTERS ENCOUNTERS ADMIT/DISCHARGE ACCOUNT NUMBER ADMITTING ENCOUNTER LOCATION SOURCE CLASS 04/21/2018/04/22/19 [id number] Ambulatory [address] ding:SDCRoo Repository : MS216 04/14/2018 [id number] Ambulatory BMSBuilding: [facility] Repository 03/19/2018 [id number] Ambulatory [facility] ding:US Repository 03/08/2018 [id number] [facility]ulatory [facility] 02/26/2018/02/27/20 [id number] Ambulatory BBuilding:[address] Repository 12/08/2017/12/09/19 [id number] CARYL, Ambulatory [address] Repository 11/25/2017/11/27/19 [id number] Ambulatory [address] Repository 06/04/2017/06/05/19 [id number] Ambulatory [place] ding:[facility] Repository 06/02/2017/06/03/19 [id number] Ambulatory [place] [address] [place] [address] ding:[facility] Repository 05/14/2017/05/14/19 [id number] Ambulatory [place] [address] [place] [address] ding:[facility] Repository 05/07/2017/05/07/19 [id number] Ambulatory [address] ding:[facility] Repository PAYERS PAYERS ENCOUNTER GUARANTOR PAYER SUBSCRIBER SOURCE 04/21/2018 SILAS Pond Primary SILAS L [place] [id number] [address] Insurance:[facility]OMTESSIEOB: [place] [id number] [place] [id number]: ([phone]) ADVANTAPolicy Number: Repository [phone] () [id number] Date:[id number] [place] [address] 71026TH: 04/21/2018 Secondary NOT GIVENUNK [place] Insurance:SELF PAY [facility] Number: Effective Repository Date:2018-04-07 04/14/2018 SILAS Dejah Primary SILAS [place] Pam [id number] [address] Insurance:ADRIEL SHAGGYOB: [place] [id number] [address]63[address]Adv: ([phone]) ADVANTAPolicy Number: Repository [phone] () [id number] Date:4741-34-96[id number] [place] [address] 96339WC: 04/14/2018 Secondary NOT GIVENUNK [place] Insurance:SELF PAY [facility] Number: Effective Repository Date:2018-04-14 03/19/2018 [facility] [place] [facility] [place] Insurance:ANTHEM FLORYDOB: [place] [id number] [facility] [address]Jhu: 330) ADVANTAPolicy Number: Repository [phone] () [id number] Date:2061-63-14[address]F [address]UYPVRCF [place] [id number]: 03/19/2018 Secondary NOT GIVENUNK [place] Insurance:SELF PAY [facility] Number: Effective Repository Date:2018-03-15 03/08/2018 SILAS Pond [facility] [place] Insurance:ANTHEM FLORYDOB: [place] [id number] Hospital [address]Fqk: (330) ADVANTAPolicy Number: Repository [phone] () [id number] Date:6667-53-27DO [id number] [place] [address] 01806ZE: 03/08/2018 Secondary NOT GIVENUNK [place] Insurance:SELF PAY [facility] Number: Effective Repository Date:2018-03-08 02/26/2018 SILAS Pond [facility] Insurance:ANTHEM FLORYDOB: [facility] [id number] Repository [place] Number: [place], [place] [id number] [place], [place] [address]Zbq: (330) Date:2018-02-26 42297Hcf: [id number] [phone] ()Tel: ([phone]) Name:[address] () () [id number], [place] [phone] () 97[address]ZB: 06/04/2017 SILAS Pond [facility]ond [facility] Insurance:ANTHEM FLORYDOB: Foundation [facility] [id number] Repository [place] Number: [place], [place] [id number] [place], [place] [address]Lfp: ([phone]) Date:2017-06-0436948Iel: [id number] [phone] (HP)Tel: ([phone]) Name:N[address] Box (HP) (WP) [id number] [place] [phone] (WP) 200[address]TG: 06/02/2017 SILAS Pond [facility] Insurance:[facility]M [facility]: [facility] [id number] Repository [place] Number: [place] [id number] [place], [place] [address]Lap: ([phone]) Date:2017-06-02Tel: [id number] [phone] (HP)Tel: ([phone]) Name:[address] Box (HP) (WP) [phone], [place] [phone] (WP) [address]OH: 05/14/2017 SILAS Pond [facility]OB: Insurance:ANTHEM FLORYDOB: [facility] [id number] Repository [place] Number: [place] [id number] [place], [place] [address]Cxj: (330) Date:2017-05-08Tel: [id number] [phone] (HP)Tel: ([phone]) Name:N[address] Box (HP) (WP) [id number] [phone] (WP) [address]TX: 05/07/2017 SILAS Pond [facility] HospitalOB: Insurance:NASEEM [facility]: [facility] [id number] Repository [place] Number: [facility]ATIONGil[place], [place] [id number] [place], [place] [address]Zjx: (035) Date:2017-05-07Tel: [id number] [phone] ()Tel: ([phone]) Name:JUAN Hennessy () (WP) [id number], [place] [phone] (TF) [address]IB:
== END 2018-04-22 13:30 | disposition home or self-care (01) ==
LOC: SDC 10:34 → AC 10:36 → MS2 04-22 09:57
PROVIDERS: Family Provider Family Medicine; PCP Family Medicine; Referring Provider Urology; Visit Provider Urology
PROC: (CPT 52318; principal; 2018-04-21 13:30)
DX: N41.1 Chronic prostatitis (principal); N40.1 Benign prostatic hyperplasia with lower urinary tract symptoms; R35.1 Nocturia; N21.0 Calculus in bladder; I10 Essential (primary) hypertension; E78.5 Hyperlipidemia, unspecified; Z87.442 Personal history of urinary calculi; Z79.899 Other long term (current) drug therapy
CPT/HCPCS: 52318; 52630; 36415; 80048; 85027; 88305; 93005; J7030; J7120; J2405